=== PATIENT | female | born 1950 | race Caucasian/White ===

== ENCOUNTER 2022-03-10 12:38 | Emergency (ER) | payer MEDICARE, OTHER, SELFPAY ==
[2022-03-10] VITALS (18 sets, daily range): BP systolic 141–176; BP diastolic 81–89; PULSE 57–71; TEMP 36.5; O2SAT 92–98
--- NOTE | 2022-03-10 13:01 | ED.GENADULT ---
HPI - General Adult General Time Seen by Provider: 13:02 Date Seen: 03/10/22 Chief complaint: Chest Pain Stated complaint: Chest pain Time Seen by Provider: 03/10/22 12:43 Source: patient and RN notes reviewed Mode of arrival: ambulatory Limitations: no limitations History of Present Illness HPI narrative: Patient is a 72-year-old female coming in with left-sided chest pain that goes into her back. It is been present for about 2 days, really seem to worsen after starting prednisone. She was in to her doctor this week, had complaints of left flank pain that seem to worsen with movement and position change, was thought to be musculoskeletal insert on prednisone. She also complained of her knees hurting her, x-rays were obtained and she is being referred to orthopedics. Her knees actually feel better on the prednisone but this left flank pain has not changed. Since starting the prednisone she has had this severe left lower chest discomfort that goes through into her back. She is not noted any change in GI symptoms such is nausea or vomiting or change in appetite. Eating does not seem to make it worse. She has had no shortness of breath. Last night she felt like she maybe had a bur or cough that it might relieve the pressure. There is a sense of pressure. She notes no history of reflux in no current symptoms of regurgitation. She does relate to me that these symptoms in the left chest maybe were present intermittently over the last 4-5 months in she never really told her doctor about it. She would notice it at night when lying down. No fevers or chills. No prior trauma. She has had a hysterectomy but no other abdominal surgery. No palpitations, no prior cardiac history. She has hypertension which she feels is probably mild. Her cholesterol maybe this last time total was 219, has not been on cholesterol medicine prior. She has never smoked, very rare social alcohol use reported. Her mother had 2 open heart surgeries 1 for revascularization and 1 for a valve. Her dad at age 94 without any underlying cardiac issues. Per her chart she is actually on Medrol Dosepak, not prednisone. Related Data Home Medications Medication Instructions Recorded Confirmed Protandim 03/10/22 citalopram 40 mg tablet mg 03/10/22 glucosamine HCl .ROUTE 03/10/22 hydrochlorothiazide 25 mg tablet mg 03/10/22 losartan 25 mg tablet mg 03/10/22 methylprednisolone 4 mg tablets in mg 03/10/22 a dose pack Previous Rx's Medication Instructions Recorded omeprazole 40 mg capsule,delayed 40 mg PO DAILY #14 caps 03/10/22 release sucralfate 1 gram tablet (Carafate) 1 g PO BID #30 tabs 03/10/22 Allergies Allergy/AdvReac Type Severity Reaction Status Date / Time erythromycin base Allergy Unknown Verified 03/10/22 12:50 Review of Systems Status of ROS: Reports: 10 or more systems reviewed and unremarkable except as noted in History and below PFSH PFSH Social History Smoking Status: Never smoker Do you use any of these nicotine containing products: None Second hand tobacco smoke exposure: No How often do you have a drink containing alcohol: monthly or less How many standard drinks containing alcohol do you have on a typical day: 1 or 2 How often do you have six or more drinks on one occasion: Never AUDIT-C Alcohol total score: 1 Non-prescribed substance use: denies use Exam Const: Vital Signs, click to edit/add: Vital Signs - 24 hr 03/10/22 12:46 03/10/22 13:20 03/10/22 12:46 Temperature 97.7 F Pulse Rate 65 Pulse Rate [Right Pulse Oximeter] 71 Blood Pressure Blood Pressure [Le ft Upper Arm] 141/89 H Pulse Oximetry 97 96 95 [facility] 03/10/22 13:02 03/10/22 13:03 03/10/22 13:32 Temperature Pulse Rate 66 66 67 Pulse Rate [Right Pulse Oximeter] Blood Pressure 151/83 H 155/87 H Blood Pressure [Le ft Upper Arm] Pulse Oximetry 96 97 98 [facility] 03/10/22 13:40 03/10/22 14:00 03/10/22 14:02 Temperature Pulse Rate 57 L 63 58 L Pulse Rate [Right Pulse Oximeter] Blood Pressure 144/86 H Blood Pressure [Le ft Upper Arm] Pulse Oximetry 96 97 97 [facility] 03/10/22 14:03 03/10/22 14:30 03/10/22 14:31 Temperature Pulse Rate 61 64 60 Pulse Rate [Right Pulse Oximeter] Blood Pressure 147/82 H Blood Pressure [Le ft Upper Arm] Pulse Oximetry 97 97 97 [facility] 03/10/22 15:02 03/10/22 15:04 03/10/22 15:30 Temperature Pulse Rate 65 62 58 L Pulse Rate [Right Pulse Oximeter] Blood Pressure 176/81 H Blood Pressure [Le ft Upper Arm] Pulse Oximetry 98 98 97 Oxygen Delivery Me thod 03/10/22 15:32 03/10/22 16:00 03/10/22 16:02 Temperature Pulse Rate 57 L 58 L Pulse Rate [Right Pulse Oximeter] Blood Pressure 157/84 H 154/82 H Blood Pressure [Le ft Upper Arm] Pulse Oximetry 98 92 97 Oxygen Delivery Me thod Documenting provider has reviewed patient's vital signs: yes Common normals: no apparent distress, average body habitus, oriented x3, no limitations, healthy appearing, alert and well nourished General appearance: cooperative, comfortable and well kempt HENMT: Common normals: normocephalic, head/scalp atraumatic, hearing grossly normal bilaterally and external ears normal Head and scalp: normocephalic and atraumatic External ear: external ears normal Eye: Common normals: PERRL, EOMs intact bilaterally, conjunctivae normal and no scleral icterus Conjunctiva: conjunctiva(e) normal Pupil: PERRL Neck & C-Spine: Common normals: full ROM, no lymphadenopathy, supple, no meningeal signs, no JVD and thyroid normal Thyroid: thyroid normal Lymph: Lymphatic: no lymphadenopathy noted Chest: Common normals: inspection of chest normal and palpation of chest normal (But does complain of a little discomfort along the left lower chest wall) Resp: Common normals: normal respiratory effort, no retractions, no use of accessory muscles and clear to auscultation bilaterally Auscultation: clear to auscultation bilaterally Cardio: Common normals: no JVD, regular rate, regular rhythm, S1 normal heart sound, S2 normal heart sound, no gallops, no clicks, no murmurs and no rub Rate: regular rate Rhythm: regular rhythm Heart sounds: S1 normal and S2 normal GI: Common normals: Normal to inspection, nondistended, normoactive bowel sounds present, soft to palpation, non-tender, no hepatosplenomegaly, no masses and no bruits Palpation: soft and no hepatosplenomegaly : Common normals: no CVA tenderness Bladder/kidney exam: no CVA tenderness Back & Pelvis: Common normals: no CVA tenderness, thoracic and lumbar spine normal to inspection and no thoracic nor lumbar tenderness Extremity: Common normals: normal to inspection, full ROM, no calf tenderness and no pedal edema Neuro: Common normals: oriented x3 Sensorium/orientation: alert Meningeal signs: no meningeal signs Speech: speech normal Gait (neuro): normal gait Psych: Appearance: well [facility] Course Course Hospital Course: EKG, portable chest x-ray will be obtained to start. IV will be placed in appropriate labs with blood work and urinalysis will be ordered. She will be on cardiac monitoring and pulse oximetry. She understands she may need further imaging. This could be GI a with gastritis or ulcer disease, could be cardiopulmonary including but not limited to coronary artery disease, dissection. I do wonder if this certainly could be GI given the worsening with the Medrol Dosepak. I am going to order 40 mg IV Protonix. Obviously, if it is looking to be cardiovascular such as an ND, will need to mash filter cloth changer as well as medication options. Reevaluation(s) Reevaluation #1: Reviewed with patient her normal portable chest x-ray, normal troponin, normal inflammatory markers. Did review that the white blood count is mildly elevated but I really have no idea where her line is. Her liver and kidney functions are normal. D-dimer is normal. She states the Protonix really has not helped the pain. I did review with her that if she is having gastric issues like a gastritis or gastric ulcer, even possibly H pylori, that I would not anticipate that a proton pump inhibitor would be a quick fix for pain. Have discussed other options for them here. We could do CT of her chest abdomen pelvis just to ensure no miss intrathoracic or intra-abdominal pathology. She may ultimately need an EGD in this evaluation which would not be done emergently here. She would like to consider this for moment and I will check back with her. Time: 14:24 Reevaluation #2: Brought a copy of patient's CT report to her. There are no acute findings that are concerning, nothing to explain her current symptoms. She did talk about her low back pain and I did advise her that that really was not the focus of this ED visit. I do wonder if her left-sided chest pain in this left flank pain that she had been having prior might be gastrointestinal, gastritis or early ulcer disease. It is possible she may have some silent GERD as well. At this time, I do feel it is safe for patient to discharge to home for further outpatient management. We will have her try some prescription proton pump inhibitor, Carafate if her insurance will cover it. I do recommend that she stop the Medrol Dosepak as she has symptoms that definitely escalated after starting that. She is going to need to follow up in clinic to continue further investigations, 1 consideration would certainly be an EGD in my opinion. Time: 16:01 Vital Signs Vital signs: Initial Vital Signs Temperature 97.7 F 03/10/22 12:46 Temperature Source Temporal Artery Scan 03/10/22 12:46 Pulse Rate 65 03/10/22 12:46 Blood Pressure 141/89 H 03/10/22 12:46 Blood Pressure Mean 106 03/10/22 12:46 Blood Pressure Position Supine 03/10/22 12:46 Pulse Oximetry 97 03/10/22 12:46 Oxygen Delivery Method 03/10/22 12:46 Vital Signs Temperature 97.7 F 03/10/22 12:46 Pulse Rate 65 03/10/22 12:46 Blood Pressure 141/89 H 03/10/22 12:46 Pulse Oximetry 97 03/10/22 12:46 Oxygen Delivery Method 03/10/22 12:46 Temperature 97.7 F 03/10/22 12:46 Pulse Rate 58 L 03/10/22 16:02 Blood Pressure 154/82 H 03/10/22 16:02 Pulse Oximetry 97 03/10/22 16:02 Oxygen Delivery Method 03/10/22 12:46 Medical Decision Making Lab Data Lab results reviewed: Yes I reviewed the patient's lab results Labs: Lab Results 03/10/22 03/10/22 03/10/22 Range/Units 13:20 13:20 13:20 WBC 12.90 H (4.50-11.00) K/uL RBC 4.62 (4.00-5.20) m/uL Hgb 13.2 (12.0-16.0) gm/dL Hct 40.3 (33.0-51.0) % MCV 87 (80-100) fL MCH 29 (26-34) pg MCHC 33 (32-36) gm/dL RDW Coeff of Geovanna 13.7 (11.5-15.5) % Plt Count 454 H (140-440) K/uL Neut % (Auto) 68.8 (42.0-72.0) % Lymph % (Auto) 20.6 (20-44) % [place] % (Auto) 9.6 (0.0-11.0) % Eos % (Auto) 0.5 (0.0-7.0) % Baso % (Auto) 0.2 (0.0-3.0) % Neut # (Auto) 8.90 H (1.7-7.0) K/uL Lymph # (Auto) 2.70 (0.90-2.90) K/uL [place] # (Auto) 1.20 H (0.00-0.90) K/UL Eos # (Auto) 0.10 (0.00-0.50) K/uL Baso # (Auto) 0.00 (0.00-0.30) K/uL Abs Immat Gran (auto) 0.04 (0.00-0.30) K/uL ESR 18 (2-20) mm/hr D-Dimer Quant (PE/DVT) 0.40 (0.00-0.50) ug/ml Sodium (135-149) mmol/L Potassium (3.6-5.1) mmol/L Chloride (96-114) mmol/L Carbon Dioxide (20-32) mmol/L BUN (7-30) mg/dL Creatinine (0.5-1.5) mg/dL Estimated GFR ml/min Glucose (60-115) mg/dL Lactate (0.5-1.9) mmol/L Calcium (8.4-10.6) mg/dL Total Bilirubin (0.1-1.5) mg/dL AST (12-35) U/L ALT (4-35) U/L Alkaline Phosphatase (40-150) U/L Troponin I (0.01-0.04) ng/mL C-Reactive Protein (0.5-1.0) mg/dL NT-Pro-B Natriuret Pep (0-125) PG/mL Total Protein (6.0-8.3) g/dL Albumin (3.3-5.0) g/dL Lipase (23-300) U/L Urine Color (Yellow) Urine Appearance (Clear) Urine pH (5.0-8.5) Ur Specific [place] (1.000-1.030) Urine Protein (Negative) Urine Glucose (UA) (Negative) Urine Ketones (Negative) Urine Blood (Negative) Urine Nitrite (Negative) Urine Bilirubin (Negative) Urine Urobilinogen (0.2-1.0) Ur Leukocyte Esterase (Negative) Urine RBC (0-2) Urine WBC (0-5) Ur Squamous Epith Cells (None-Few) Urine Bacteria (None) 03/10/22 03/10/22 03/10/22 Range/Units 13:20 13:20 14:38 WBC (4.50-11.00) K/uL RBC (4.00-5.20) m/uL Hgb (12.0-16.0) gm/dL Hct (33.0-51.0) % MCV (80-100) fL MCH (26-34) pg MCHC (32-36) gm/dL RDW Coeff of Geovanna (11.5-15.5) % Plt Count (140-440) K/uL Neut % (Auto) (42.0-72.0) % Lymph % (Auto) (20-44) % [place] % (Auto) (0.0-11.0) % Eos % (Auto) (0.0-7.0) % Baso % (Auto) (0.0-3.0) % Neut # (Auto) (1.7-7.0) K/uL Lymph # (Auto) (0.90-2.90) K/uL [place] # (Auto) (0.00-0.90) K/UL Eos # (Auto) (0.00-0.50) K/uL Baso # (Auto) (0.00-0.30) K/uL Abs Immat Gran (auto) (0.00-0.30) K/uL ESR (2-20) mm/hr D-Dimer Quant (PE/DVT) (0.00-0.50) ug/ml Sodium 136 (135-149) mmol/L Potassium 3.6 (3.6-5.1) mmol/L Chloride 101 (96-114) mmol/L Carbon Dioxide 26 (20-32) mmol/L BUN 25 (7-30) mg/dL Creatinine 0.7 (0.5-1.5) mg/dL Estimated GFR 93 ml/min Glucose 90 (60-115) mg/dL Lactate 1.2 (0.5-1.9) mmol/L Calcium 9.2 (8.4-10.6) mg/dL Total Bilirubin 0.3 (0.1-1.5) mg/dL AST 19 (12-35) U/L ALT 18 (4-35) U/L Alkaline Phosphatase 112 (40-150) U/L Troponin I < 0.01 L (0.01-0.04) ng/mL C-Reactive Protein < 0.5 L (0.5-1.0) mg/dL NT-Pro-B Natriuret Pep 150 H (0-125) PG/mL Total Protein 7.7 (6.0-8.3) g/dL Albumin 4.5 (3.3-5.0) g/dL Lipase 45 (23-300) U/L Urine Color Yellow (Yellow) Urine Appearance Clear (Clear) Urine pH 6.0 (5.0-8.5) Ur Specific [place] 1.020 (1.000-1.030) Urine Protein Negative (Negative) Urine Glucose (UA) Negative (Negative) Urine Ketones Trace A (Negative) Urine Blood Negative (Negative) Urine Nitrite Negative (Negative) Urine Bilirubin Negative (Negative) Urine Urobilinogen 0.2 (0.2-1.0) Ur Leukocyte Esterase 1+ A (Negative) Urine RBC 2-5 A (0-2) Urine WBC 0-2 (0-5) Ur Squamous Epith Cells Moderate A (None-Few) Urine Bacteria None (None) Imaging Data Chest x-ray: Attestation: I have reviewed the pertinent imaging results. My impression: My preliminary review of this portable chest x-ray is no acute pathology, await Radiology over-read. Radiologist's impression: Patient: HUY JEAN Facility:?[facility] Patient ID:?[id number] Site Patient ID:?[id number]. Site :?[id number] Study:?XRay Chest PORTABLE-03/10/2022 1:38:09 PM Ordering Physician:?Kelsea Chin Final Report: INDICATION: Chest discomfort COMPARISON: None TECHNIQUE: Single view the chest FINDINGS: TUBES AND LINES: None. HEART AND MEDIASTINUM: The heart size is normal. The mediastinal contour appears normal for patient age. LUNGS AND PLEURAL SPACES: The lungs appear normal.The pleural spaces are unremarkable. OSSEOUS STRUCTURES: Age-appropriate appearance. No acute focal finding. IMPRESSION: No evidence of active pulmonary disease. Dictated by Emeka Vale MD @ 03/10/2022 1:49:36 PM (Electronic Signature) CT Chest/Ab/Pelvis: Attestation: I have reviewed the pertinent imaging results. Radiologist's impression: Patient: HUY JEAN Facility:?[facility] Patient ID:?[id number] Site Patient ID:?[id number]. Site :?[id number] Study:?CT Chest/Abd/Pelvis 97CC ISOVUE 370-03/10/2022 3:17:40 PM Ordering Physician:Catie Chin Final Report: INDICATION: Chest pain, low back pain. TECHNIQUE: CT chest, abdomen, and pelvis acquired with 97 mL of Isovue 370 IV contrast. Coronal and sagittal reformats were generated. COMPARISON: CT chest from 06/26/2016. FINDINGS: CHEST: Thyroid: Unremarkable. Thoracic lymph nodes: No enlarged supraclavicular, mediastinal, hilar, or axillary lymph nodes. Mediastinum and esophagus: Unremarkable. Heart and vasculature: The heart is enlarged. Lungs: Linear bibasilar opacities are suggestive of scarring. No focal consolidations. Pleura: Unremarkable. Chest wall: Unremarkable. ABDOMEN AND PELVIS: Liver: Well-circumscribed hepatic hypodensity near the dome is likely a cyst. Gallbladder and bile ducts: Unremarkable. No stones or inflammation. No biliary dilation. Spleen: Unremarkable. Pancreas: Unremarkable. Adrenal glands: Unremarkable. No nodules. Kidneys and Ureters: Unremarkable. No suspicious masses, stones, or hydronephrosis. Lymph Nodes and Retroperitoneum: Unremarkable. Vasculature: Unremarkable. GI tract: Unremarkable. Normal in caliber. Multiple diverticula project from the colon, without inflammatory changes to suggest diverticulitis. The appendix is normal. Peritoneum/Abdominal Wall: Unremarkable. No mass or infiltration. No free air or free fluid. Pelvic Viscera: Surgically absent. Bladder: Unremarkable. Bones: Multilevel degenerative changes. No aggressive appearing lytic or blastic lesions. IMPRESSION: 1. No significant CT abnormality or findings to explain the cause of the patient`s symptoms. 2. Chronic changes as above. Please note that all CT scans at this facility use dose modulation, iterative reconstruction, and/or weight-based dosing when appropriate to reduce radiation dose to as low as reasonably achievable. Dictated by Richard López MD @ 03/10/2022 3:48:36 PM (Electronic Signature) ECG Data Attestation: I personally reviewed and interpreted this ECG as follows: (Sinus rhythm, 67 beats per minute. Flipped T-waves in V1 and V2 without ST segment changes.) Prior ECG tracings: not available for review Critical Care Time Critical Care Time Critical Care Time: No Discharge Plan Discharge Clinical Impression: Left-sided chest pain Condition: Stable Instructions: Chest Pain (ED), Gastritis (ED), GERD (Gastroesophageal Reflux Disease) (ED) Additional Instructions: The definitive diagnosis for your current symptoms is not completely known. I do suspect that this could be gastrointestinal in nature and something along the lines of GERD/gastritis, possible early ulcer disease. I would recommend stopping the Medrol Dosepak. You can take Tylenol 1000 mg 3 times a day as needed for pain control. He certainly can try a heat on your back as you stated ice is intolerable for you. You need to follow up in clinic next week with your primary care provider as soon as you are able to. In the meantime, should you develop increasing pain, have fever, have vomiting or any new concerning symptoms 2, please seek re-evaluation. We will put you on omeprazole, take prescription daily. Can also try the Carafate that I prescribed, this can help coat the lining of the stomach. If this does diminish her symptoms, I do think it makes it more likely that this might be stomach related. Activity Level: Activity as Tolerated Prescriptions: New omeprazole 40 mg capsule,delayed release(DR/EC) 40 mg PO DAILY Qty: 14 0RF sucralfate [Carafate] 1 gram tablet 1 g PO BID Qty: 30 0RF No Action citalopram 40 mg tablet losartan 25 mg tablet Label Comments: TAKE 1 TABLET BY MOUTH EVERY DAY hydrochlorothiazide 25 mg tablet Label Comments: TAKE 1 TABLET BY MOUTH EVERY DAY methylprednisolone 4 mg tablets,dose pack Label Comments: FOLLOW PACKAGE DIRECTIONS glucosamine HCl .ROUTE Protandim Follow Up/Referrals: Shelby Leonardo PABonnieC [Primary Care Provider] - Stand Alone Forms: [id number] outdoorsth Info Instructions
--- NOTE | 2022-03-10 13:12 | CRLHL7_ITS ---
For Patients: As a result of the Cures Act, medical imaging exams and procedure reports are released immediately into your electronic medical record. You may view this report before your referring provider. If you have questions, please contact your health care provider. INDICATION: Chest discomfort COMPARISON: None TECHNIQUE: Single view the chest FINDINGS: TUBES AND LINES: None. HEART AND MEDIASTINUM: The heart size is normal. The mediastinal contour appears normal for patient age. LUNGS AND PLEURAL SPACES: The lungs appear normal.The pleural spaces are unremarkable. OSSEOUS STRUCTURES: Age-appropriate appearance. No acute focal finding. IMPRESSION: No evidence of active pulmonary disease. Dictated by Emeka Vale MD @ 03/10/2022 1:49:36 PM (Electronically Signed)
[2022-03-10 13:29] LABS: Lactate* 1.2 mmol/L (0.5-1.9)
[2022-03-10 13:31] LABS: Basophils Percent Auto 0.2 % (0.0-3.0); Eosinophils Percent Auto 0.5 % (0.0-7.0); Hematocrit 40.3 % (33.0-51.0); Hemoglobin* 13.2 gm/dL (12.0-16.0); Immature Granulocytes Abs Auto 0.04 K/uL (0.00-0.30); Lymphocytes Percent Auto 20.6 % (20-44); Mean Corpuscular HGB Conc 33 gm/dL (32-36); Mean Corpuscular Hemoglobin 29 pg (26-34); Mean Corpuscular Volume 87 fL (80-100); Monocytes Percent Auto 9.6 % (0.0-11.0); Neutrophils Percent Auto 68.8 % (42.0-72.0); Platelet Count* 454 K/uL (140-440); RDW Coefficient of Variation % 13.7 % (11.5-15.5); Red Blood Count 4.62 m/uL (4.00-5.20)
[2022-03-10] MEDS: PANTOPRAZOLE SODIUM 40 MG INJ IVP (13:38)
[2022-03-10 13:42] LABS: Slide Review Reflex No
[2022-03-10 13:44] LABS: Albumin* 4.5 g/dL (3.3-5.0); Chloride* 101 mmol/L (96-114); Sodium* 136 mmol/L (135-149)
[2022-03-10 13:45] LABS: Potassium* 3.6 mmol/L (3.6-5.1)
[2022-03-10 13:47] LABS: Bilirubin Total* 0.3 mg/dL (0.1-1.5); Creatinine* 0.7 mg/dL (0.5-1.5); Estimated Glomerular Filt Rate 93 ml/min
[2022-03-10 13:48] LABS: Alanine Aminotransferase* 18 U/L (4-35); Alkaline Phosphatase* 112 U/L (40-150); Aspartate Amino Transferase* 19 U/L (12-35); Blood Urea Nitrogen* 25 mg/dL (7-30); Calcium* 9.2 mg/dL (8.4-10.6); Carbon Dioxide* 26 mmol/L (20-32); Glucose* 90 mg/dL (60-115); Lipase* 45 U/L (23-300); Total Protein* 7.7 g/dL (6.0-8.3)
[2022-03-10 13:51] LABS: C Reactive Protein* < 0.5 mg/dL (0.5-1.0)
--- NOTE | 2022-03-10 13:51 | ED.NURSE ---
Pt complaint of some tenderness with palpation of IV site in R AC. IV patent and flushes well. IV checked as well by KSENIA Grady. Appears patent and flushes without discomfort.
[2022-03-10 13:57] LABS: NT Pro B Type NatriureticPept* 150 PG/mL (0-125)
[2022-03-10 14:11] LABS: Troponin I* < 0.01 ng/mL (0.01-0.04)
--- OUTSIDE RECORDS SUMMARY | 2022-03-10 14:21 | XMS_ITS ---
:1950 Author Care Team Providers Name Role Phone Cedrick Lombardo Primary Care Provider Unavailable Allergies Code Code System Name Reaction Severity Status Onset 4053 RxNorm Erythromycin Base Chest Pain ? Active ? Medications Name Status Start Date Stop Date ? ? citalopram 40 mg tablet Active ? Not avai lable TAKE 1 TABLET BY MOUTH EVERY DAY Fluzone High-Dose Quad 202021 (PF) 240 mcg/0.7 mL IM syringe Ac tive ? Not available PHARMACY ADMINISTERED hydrochlorothiazide 25 mg tablet Active ? Not available TAKE 1 TABLET BY MOUTH EVERY DAY hydrocodone 5 mg-acetaminophen 325 mg tablet Active ? Not available TAKE 1 TABLET BY MOUTH TWICE DAILY N EEDED FOR SEVERE PAIN.MAX ACETAMINOPHEN DOSE 4000MG IN 24 HRS losartan 25 mg tablet Active ? Not availa ble TAKE 1 TABLET BY MOUTH EVERY DAY Shingrix (PF) 50 mcg/0.5 mL intramuscular suspension, kit Active ? Not available TO BE ADMINISTERED BY PHARMACIST FOR IMMUNIZATION triamcinolone acetonide 0.1 % topical cream Active ? Not available APPLY A THIN LAYER TO THE AFFECTED AREA ON LEFT ANKLE DAILY TO TWICE DAILY UP TO 2 WEEKS AT A TIME. TAKE 2 WEEK OFF. REPEAT NEEDED FOR [place] Problems No Known Problems Procedures None recorded. Results Lab Results Date Name Specimen Result Interpretation Description Value Range Status Address ? 03/09/2021 SARS CoV 2 RNA, Nose (nasal ? Result negative ? ? [facility] QL, GERALD+probe, passage) [facility] Nose [place]: [address] , [place] 06/01/2020 SARS CoV 2 RNA Nose (nasal ? Result negative ? ? [facility] (COVID-19), QL, passage) Urgent Care template checker-PCR, [facility] t: Respiratory [address], [place] Past Encounters 03/09/2021 Exposure to SARS-CoV-2 Rose Lombardo PA-C: [address], [place] [address], Ph. Social History None recorded. Vaccine List Vaccine Type COVID-19, mRNA, LNP-S, PF, 100 mcg/0.5 m L dose (Moderna) 08/08/2020 09/05/2020 DTaP, unspecified formulation 03/05/2005 influenza, high dose seasonal 04/16/2019 influenza, high-dose, quadrivalent 04/01/2020 influenza, injectable, quadrivalent, pre servative free 03/24/2015 04/27/2016 influenza, trivalent, adjuvanted 05/22/2017 05/24/2018 influenza, unspecified formulation 07/02/2008 04/08/2009 04/05/2011 pneumococcal conjugate PCV 13 05/24/2018 pneumococcal polysaccharide PPV23 05/05/2004 05/28/2019 Td (adult), adsorbed 05/05/2004 Tdap 12/16/2012 zoster recombinant 04/08/2019 07/29/2019 Plan of Care Patient Instructions Discussed rapid covid results with alejo ent. Patient appears well, no immediate concerns. Patient understands and agrees with treatment plan and instructions. Symptom management discussed to continue OTC cough/cold medications as needed. Medication side effects discussed. Discu ssed risks? benefits? alternatives? side effects of treatment. If symptoms progre ss or worsen, patient should proceed to the emergency room immediately. All question s answered. Reminders Provider Appointments None recorded. ? ? Lab None recorded. ? ? Referral None recorded. ? ? Procedures None recorded. ? ? Surgeries None recorded. ? ? Imaging None recorded. ? ? Vitals Blood Pressure 143/90 mm[Hg]
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
--- NOTE | 2022-03-10 14:32 | CRLHL7_ITS ---
For Patients: As a result of the Century Cures Act, medical imaging exams and procedure reports are released immediately into your electronic medical record. You may view this report before your referring provider. If you have questions, please contact your health care provider. INDICATION: Chest pain, low back pain. TECHNIQUE: CT chest, abdomen, and pelvis acquired with 97 mL of Isovue 370 IV contrast. Coronal and sagittal reformats were generated. COMPARISON: CT chest from 06/26/2016. FINDINGS: CHEST: Thyroid: Unremarkable. Thoracic lymph nodes: No enlarged supraclavicular, mediastinal, hilar, or axillary lymph nodes. Mediastinum and esophagus: Unremarkable. Heart and vasculature: The heart is enlarged. Lungs: Linear bibasilar opacities are suggestive of scarring. No focal consolidations. Pleura: Unremarkable. Chest wall: Unremarkable. ABDOMEN AND PELVIS: Liver: Well-circumscribed hepatic hypodensity near the dome is likely a cyst. Gallbladder and bile ducts: Unremarkable. No stones or inflammation. No biliary dilation. Spleen: Unremarkable. Pancreas: Unremarkable. Adrenal glands: Unremarkable. No nodules. Kidneys and Ureters: Unremarkable. No suspicious masses, stones, or hydronephrosis. Lymph Nodes and Retroperitoneum: Unremarkable. Vasculature: Unremarkable. GI tract: Unremarkable. Normal in caliber. Multiple diverticula project from the colon, without inflammatory changes to suggest diverticulitis. The appendix is normal. Peritoneum/Abdominal Wall: Unremarkable. No mass or infiltration. No free air or free fluid. Pelvic Viscera: Surgically absent. Bladder: Unremarkable. Bones: Multilevel degenerative changes. No aggressive appearing lytic or blastic lesions. IMPRESSION: 1. No significant CT abnormality or findings to explain the cause of the patient`s symptoms. 2. Chronic changes as above. Please note that all CT scans at this facility use dose modulation, iterative reconstruction, and/or weight-based dosing when appropriate to reduce radiation dose to as low as reasonably achievable. Dictated by Richard López MD @ 03/10/2022 3:48:36 PM (Electronically Signed)
[2022-03-10] MEDS: ACETAMINOPHEN 500 MG TABLET 1000 MG PO (14:45)
[2022-03-10 14:46] LABS: Appearance Urine Clear (Clear); Bilirubin Urine Negative (Negative); Blood Urine Negative (Negative); Color Urine Yellow (Yellow); Glucose Urine Negative (Negative); Ketones Urine Trace (Negative); Leukocyte Esterase Urine 1+ (Negative); Nitrite Urine Negative (Negative); Protein Urine Negative (Negative); Urobilinogen Urine 0.2 (0.2-1.0)
[2022-03-10 15:00] LABS: Erythrocyte SedimentationRate* 18 mm/hr (2-20)
--- NOTE | 2022-03-10 15:15 | ED.NURSE ---
Pt asking if she can take her daily meds (escitalopram, losartan, and HCTZ). MD notified and MD approved pt to take her normal home meds.
[2022-03-10 15:24] LABS: Squamous Epithelial Cell Urine Moderate (None-Few); WBC Urine 0-2 (0-5)
== END 2022-03-10 16:27 | disposition home or self-care (01) ==
PROVIDERS: Emergency Provider Family Medicine; PCP Physician Assistant Medical
DX: R07.89 Other chest pain (principal); K29.70 Gastritis, unspecified, without bleeding
CPT/HCPCS: 36415; 71045; 71260; 74177; 80053; 81001; 83605; 83690; 83880; 84484; 85025; 85379; 85651; 86140; 93005; 94761; 96374; 99284; 99285; A9270; C9113; Q9967

== ENCOUNTER 2024-04-29 10:38 | Outpatient (RCR) | payer MEDICARE, OTHER, SELFPAY ==
--- NOTE | 2024-04-29 17:10 | PT.OPEX ---
PT [facility] Outpatient Eval PT [facility] Outpatient Eval Start: 04/29/24 13:23 Freq: Status: Active Protocol: Document 04/29/24 15:49 FORTINO (Rec: 04/29/24 17:08 FORTINO [id number]) E-signed By Carly Alves DPT Physical Therapy Outpatient Evaluation Insurance Information Recert Due Date 05/29/24 Insurance Name Medicare B,[employer] Medical Diagnosis R knee OA R TKA 05/05/24 Treating Diagnosis R TKA 05/05/24, R knee pain, impaired R knee ROM, limited tolerance for extended standing/walking/stairs, limping/antalgic gait Subjective Subjective Patient reports chronic bilateral knee pain, leading up to R TKA scheduled for 05/18. States she will likely have L knee replaced early next year. Patient reports difficulty with transitional movements, sit/stand, due to increased bilateral knee pain. Standing/walking/stairs are limited by knee pain, weakness . Patient is borrowing a FWW to use after surgery. Reports spouse is able to assist at home as needed after surgery. She lives in a split entry home. No stairs to enter. 8 stairs with one railing/ banister to get up to the main level. Once up to main level , patient can stay there. She has OP PT scheduled in [place]. Date of Last Physician Visit 03/19/24 Date of Surgery (If applicable) 05/05/24 Current Work Status Retired Assessment Assessment/Impression Patient is a 74 year old female with chronic R knee pain leading to R TKA scheduled for 05/05/24. Patient with R knee pain, impaired R knee ROM, limited tolerance for extended standing/walking/stairs, limping/antalgic gait. Pain up to 8-9/10 with activity. Patient lives with her spouse. He is able to assist at home as needed after surgery. She is borrowing a FWW to use after surgery. States she has a raised toilet seat to put on the toilet, walk in shower, shower chair, hand rails. Patient lives in a split entry home, no stairs to enter, 8 stairs with one railing and banister up to main level. Patient is not currently using an AD. She is getting out regularly, driving. Her OP PT is scheduled for 05/07 in [place]. Patient seen in PT today for pre-op session to provide education/information on upcoming TKA surgery, safety information/HO, equipment instruction including use of FWW, and instruction in TKA exercises. Handouts issued for exercises , patient to perform them leading up to surgery. Reviewed PT/OT plan during hospital stay and patient is scheduled for OP PT post op. Patient would benefit from skilled PT for pain/sx management, improved knee ROM, improved knee/LE mobility/ strength, improved gait, balance/proprioception training, and establishment of HEP. Plan of Care Rehabilitation Potential Good Physical Therapy Goals 1. Patient will be educated in TKA pre/post-op safety, mobility, and exercises with HOs provided within one visit with patient returning to PT for post op treatment after TKA surgery . PT goals will be updated to TKA rehab goals when patient returns post op. Coordination/Communication With Referral Source Treatment Plan/Direct Interventions Therapeutic Exercises Frequency/Duration one pre-op session Patient Will Be Discharged From Therapy Completion of LTG(s),Skills Plateau,Independent w/HEP, Independently Progressing Evaluation Billing Untimed Code Treatment Minutes 44 Complexity Low Certification Information Initial Certification Date 04/29/24 Ending Certification Date 05/29/24 Provider Signature Required Yes Provider Signature Shows Agreement With POC & Medical Necessity Physician NPI Number Write NPI# Here Physician Comment/Change : Physician Signature & Date Requested Please Sign/Date Here
== END 2024-08-27 23:59 | disposition home or self-care (01) ==
PROVIDERS: PCP Physician Assistant Medical; Visit Provider Orthopaedic Surgery Sports Medicine
DX: M17.11 Unilateral primary osteoarthritis, right knee (principal); Z96.651 Presence of right artificial knee joint; M25.561 Pain in right knee; Z74.09 Other reduced mobility; R26.89 Other abnormalities of gait and mobility; Z51.89 Encounter for other specified aftercare
CPT/HCPCS: 97161; J3010

== ENCOUNTER 2024-05-05 09:59 | Day surgery (SDC) | payer MEDICARE, OTHER, SELFPAY ==
[2024-05-05] VITALS (27 sets, daily range): BP systolic 100–180; BP diastolic 56–118; PULSE 40–58; RESP 14–20; TEMP 35.9–37; O2SAT 91–100; BMI 34.4
[2024-05-05] MEDS: MIDAZOLAM HCL 1 MG/ML inj IVP (08:46)
[2024-05-05] MEDS: OXYCODONE (CR) 10 MG TAB.ER.12H PO (08:46)
[2024-05-05] MEDS: fentaNYL 100 MCG/2 ML inj IVP (08:46)
[2024-05-05] MEDS: ACETAMINOPHEN 500 MG TABLET 1000 MG PO ×3 (08:46→21:29)
[2024-05-05] MEDS: LACTATED RINGERS 1000 ML 1,000 ML 100 ML IV (08:50)
--- OUTSIDE RECORDS SUMMARY | 2024-05-05 10:05 | XMS_ITS | Clinical Summary ---
Author Organization [employer] [facility] Address [place], [place] [address] Care Team Providers Care Clinical Laboratory Aide Name Role Phone Shelby Leonardo Primary Care Provider Allergies Active Allergy Reactions Criticality Noted Date Comments Doxycycline Headache 09/21/2023 Erythromycin Palpitations,Tachyc ardia 09/01/2011 Unlisted Allergen (Include Detail In Comments) Chest Pain 12/30/2015 PN: Arythromycin - chest tightness Medications Medication Sig Dispensed Refills Start Date End Date Status Multivitamin Cmb No.21-Iron-FA (CENTRUM ULTRA WOMEN'S) 18-400 mg-mcg Tab Take by mouth. 0 09/01/2011 Active calcium carbonate (Calcicarb) 650 mg calcium (1,625 mg) tablet Take 1 Tablet (1,625 mg) by mouth once daily. 0 10/18/2022 Active cyclobenzaprine (FLEXERIL) 10 mg tabletIndications:C hronic midline low back pain without sciatica,Muscle spasm Take 1 Tablet (10 mg) by mouth 2 times daily if needed for Muscle Spasm. 60 Tablet 3 03/12/2023 Active LORazepam (ATIVAN) 1 mg tabletIndications:C laustrophobia Take 1 Tablet (1 mg) by mouth one time for 1 dose. Take 1/2-1 hour before the MRI 1 Tablet 08/01/2023 Active fluticasone (50 mcg per actuation) nasal solution (FLONASE)Indication s:Post-nasal drip Inhale 1 [place] to both nostrils two times daily. 16 g 2 10/25/2023 Active citalopram (CELEXA) 40 mg tabletIndications:D ysthymia Take 1 Tablet (40 mg) by mouth once daily. 90 Tablet 3 03/10/2024 Active hydroCHLOROthiazide 25 mg tabletIndications:H ypertension, unspecified type Take 1 Tablet (25 mg) by mouth once daily. 90 Tablet 3 03/10/2024 Active losartan (COZAAR) 25 mg tabletIndications:H ypertension, unspecified type Take 1 Tablet (25 mg) by mouth once daily. 90 Tablet 3 03/10/2024 Active rosuvastatin (CRESTOR) 10 mg tabletIndications:H yperlipidemia, unspecified hyperlipidemia type Take 1 Tablet (10 mg) by mouth at bedtime. 90 Tablet 3 03/10/2024 Active antiox #8/om3/dha/epa/lut/ zeax (PRESERVISION AREDS 2, OMEGA-3, ORAL) Take by mouth. Active LUTEIN ORAL Take by mouth. Active glucosam/chond/glyc osaminog/C (GLUCOSAM-CONDROITI N-GA GLYCN-C ORAL) Take by mouth. Ac tive diazePAM (Valium) 2 mg tabletIndications:S udden hearing loss of both ears Take 1 tab 30 minutes prior to procedure. Can take additional dose if needed 2 Tablet 04/03/2024 Active omeprazole (PRILOSEC) 40 mg Delayed-Release capsuleIndications: Mixed conductive and sensorineural hearing loss of right ear with restricted hearing of left ear Take 1 Capsule (40 mg) by mouth once daily before a meal. 14 Capsule 04/03/2024 Active celecoxib (CELEBREX) 200 mg capsuleIndications: Arthritis of right knee Take 1 Capsule (200 mg) by mouth 2 times daily if needed for Pain. 36 Capsule 1 03/10/2024 Discontinue d(*Patient states no longer taking) predniSONE (DELTASONE) 20 mg tabletIndications:S udden hearing loss of both ears Take 2 Tablets (40 mg) by mouth once daily with a meal for 7 days. 14 Tablet 04/03/2024 Active Problems Problem Noted Date Diagnosed Date Asymmetrical sensorineural hearing loss 11/14/19 24 Depression, recurrent 03/07/2023 Arthritis of right knee 04/03/2022 Arthritis of left knee 04/03/2022 Routine adult health maintenance 10/17/2018 Overview (10/17/2018): Colonoscopy 09/2018 normal, repeat in 10 years Inclusion cyst of vulva 02/10/2014 Back pain 02/10/2014 Skin lesion of face 02/03/2013 HTN (hypertension) 03/11/2012 Dysthymia 09/01/2011 Resolved Problems Problem Noted Date Diagnosed Date Resolved Date History of sudden hearing loss 11/14/2023 11/14/2023 Overview (11/14/2023): Right ear Encounters Date Type Department Care Team Description 04/21/2024 3:40 PM CDT Ancillary Procedure [facility] [address] [place] [address] 04/21/2024 Travel 04/21/2024 Telephone [facility] [address] [facility] [address] [facility] [address] [place] [address] Harman Smart MD 04/16/2024 3:07 PM CDT - 04/16/2024 11:59 PM CDT Hospital Encounter [facility] [address] [place] [address] Harman Smart MD Sudden hearing loss of both ears 04/16/2024 11:30 AM CDT Office Visit [facility] [address] [place] [address] Shelby Leonardo PA Preoperative Exam (Rt knee) 04/16/2024 Travel 04/03/2024 10:15 AM CDT Office Visit [facility] [address] [place] [address] Harman Smart MD Follow Up (Asymmetrical sensorineural hearing loss) 04/02/2024 1:00 PM CDT Office Visit [facility] [address] [place] [address] Syeda Valencia AuD Hearing Problem (Hearing test/) 04/02/2024 Travel 04/01/2024 Telephone [facility] [address] [place] [address] Harman Smart MD Referral (Audiological Evaluation) 03/31/2024 Telephone [facility] [address] [place] [address] Harman Smart MD Hearing Problem (Reoccuring hearing issue) 03/10/2024 2:40 PM CDT Office Visit [facility] [address] [facility] [place] [address] Shelby Leonardo PA Medicare ANNUAL (subsequent) Visit (74 years old) 03/10/2024 Travel from Last 3 Months Immunizations Name Administration Dates Next Due COVID-19 VACCINE SPIKEVAX (M ODERNA 50MCG/0.5ML) 12YO+ PFS 03/10/2024,08/01/2023 COVID-19 vaccine (Moderna 10 0mcg/0.5mL) PF, MDV 04/22/2021,09/05/2020,08/08/2020 COVID-19 vaccine (Pfizer-Bio NTech 30mcg/0.3mL) 12YO+ NAS-SUCROSE PF, MDV 10/04/2021 Dtap Unspecified Formulation 03/05/2005 Influenza Virus, Unspecified 04/05/2011,04/08/20 09,07/02/2008 Influenza, High-dose Inactivated 04/16/2019 Influenza, High-dose Quadriv alent Inactivated 04/01/2020 Influenza, IIV4 04/27/2016,03/24/2015 Influenza, IIV4 (=>6mos) MDV 04/01/2020 Influenza, Inactivated AIIV4 (Age 65+ Years) Preserv Free 08/01/2023,03/06/2022,04/11/2021 Influenza, Inactivated IIV3 (Age 65+ Years) Preserv Free 03/10/2024,05/24/2018,05/22/2017 Pneumococcal Poly,23-Valent (Pneumovax) 05/28/20 19,05/05/2004 Pneumococcal conj 13-Valent (Prevnar 13) 018 Td (Age >=7 Years) 05/05/2004 Tdap 12/16/2012 Tdap, Unspecified 03/05/2005 Zoster (Shingrix-RZV, recombinant) 07/29/2019, Family History Medical History Relation Name Comments Cancer-breast Daughter borderline Other Daughter atypical breast cells. no cancer. Other Maternal Aunt melanoma Other Mother melanoma age 59 Cancer-colon No Family History Cancer-ovarian No Family History Relation Name Status Comments Daughter Maternal Aunt Mother Social History Tobacco Use Types Packs/Day Years Used Date Smoking Tobacco: Never Smokeless Tobacco: Never Tobacco Cessation:Counseling Given: Yes Alcohol Use Standard Drinks/Week Comments Yes 0 (1 standard drink = 0.6 oz pur e alcohol) rare PHQ-2 Answer Date Recorded PHQ-2 TOTAL SCORE 0 03/10/2024 Social Connections Answer Date Recorded Do you often feel lonely or isolated from those around you? 0 09/20/2023 Financial Resource Strain Answer Date R ecorded Difficulty of Paying Living Expenses 3 09/20/2023 Difficulty of Paying Living Expenses Not on file 09/20/2023 Food Insecurity Answer Date Recorded Do you worry your food will run out before you are able to buy more? 1 09/20/2023 Transportation Needs Answer Date Record ed Does lack of transportation keep you from medica l appointments? 1 09/20/2023 Does lack of transportation keep you from work, meetings or getting things that you need? 1 09/20/2023 Housing Stability Answer Date Recorded What is your housing situation today? 1 09/20/2023 Sex and Gender Information Value Date Recorded Sex Assigned at Not on file Gender Identity Not on file Sexual Orientation Not on file Obstetrics History Para Term AB IAB SAB Ectopic Multiple Livin g Live Births 3 2 2 Date Outcome GA Total Labor Labor/2nd/3rd Weight Sex Type Anes PTL Brie A1 A5 Name Clin Para Para Last Filed Vital Signs Vital Sign Reading Time Taken Comments Blood Pressure 131/84 04/16/2024 11:38 AM CDT Pulse 60 04/16/2024 11:38 AM CDT Temperature 36.6 ??C (97.8 ??F) 10/08/2023 10:26 AM C DT Respiratory Rate 14 10/11/2023 1:01 PM CDT Oxygen Saturation 97% 10/08/2023 10:26 AM CDT Inhaled Oxygen Concentration - - Weight 93.9 kg (207 lb) 04/16/2024 11:38 AM CDT Height 165.9 cm (5' 5.3) 03/10/2024 3:03 PM CDT Body Mass Index 34.13 03/10/2024 3:03 PM CDT Plan of Treatment Health Maintenance Due Date Last Done Comments Tetanus booster 12/16/2022 12/16/2012, 02/23, 05/05/2004 BMI (ht and wt on same day) for age 18+ 03/10/2025 03/10/2024, 09/05/2023, 04/07/2022, Additional history exists Depression screening for age 12+ 03/10/2025 03/10/2024, 03/09/2023, 03/07/2023, Additional history exists Medicare Wellness for age 65+ 03/11/2025, 03/07/2023, 03/06/2022, Additional history exists Mammogram for age 45-75 04/21/2025 04/21/20, 04/17/2023, 04/13/2022, Additional history exists Lipids for age 45-75 03/07/2028 03/07/2023, 03/06/2022, 06/30/2020, Additional history exists Colonoscopy through age 75 10/17/202810/17, 10/17/2018, 10/17/2018 Tdap Completed 12/16/2012, 03/05/2005 Hepatitis C screening for ag e 18-79 Completed 02/10/2014 DEXA/DXA scan for age 65+ Completed 09/10/2018 Pneumococcal series for age 65+ Completed 05/28/2019, 05/24/2018, 05/05/2004 Zoster (shingles) series for age 50+ Completed 07/29/2019, 04/08/2019 COVID-19 vaccine series Completed 03/10/20, 08/01/2023, 11/28/2022, Additional history exists Influenza for age 65+ Completed 03/10/2024 , 08/01/2023, 03/06/2022, Additional history exists Procedures Procedure Name Priority Date/Time Associated Diagnosis Comments XR MAMMO TONG BILAT SCREEN Routine 04/21/2024 3:36 PM CDT Visit for screening mammogram EKG 12 LEAD Routine 04/17/2024 11:21 AM CDT Hypertension, unspecified type NJ READING EKG - NO CHARGE, COMP ONLY Routine 04/17/2024 11:20 AM CDT Hypertension, unspecified type MR HEAD BRAIN IACS WWO Routine 3:56 PM CDT Sudden hearing loss of both ears HEMOGLOBIN Routine 04/16/2024 12:19 PM CDT Hypertension, unspecified type BASIC METABOLIC PANEL Routine 04/16/2024 12:19 PM CDT Hypertension, unspecified type ANTINUCLEAR ANTIBODIES TITER AND PATTERN (QUEST REFLEX ONLY) Routine 04/03/2024 10:53 AM CDT ANTINUCLEAR ANTIBODY BY IFA Routine 04/03/2024 10:53 AM CDT Sudden hearing loss of both ears C-REACTIVE PROTEIN Routine 04/03/2024 10 :53 AM CDT Sudden hearing loss of both ears SEDIMENTATION RATE Routine 04/03/2024 10 :53 AM CDT Sudden hearing loss of both ears LIPID PANEL W REFLEX MEASURED LDL Routine 03/07/2023 3:14 PM CDT Screening cholesterol level COLONOSCOPY 10/17/2018 10:12 AM CDT XR DXA BONE DENSITY 2 SITES AXIAL Routine 09/10/2018 11:18 AM CDT Menopause ANTI HCV Routine 02/10/2014 12:04 PM CDT Need for hepatitis C screening test from Last 3 Months or Most Recently Relevant to Health Maintenance Results * XR MAMMO TONG BILAT SCREEN (04/21/2024 3:36 PM CDT) Anatomical Region Laterality Modality BREASTS, Breast Left, Breast Right Bilateral Mammography Impressions 04/23/2024 2:18 PM CDT ??There is no radiographic evidence for malignancy. ??Recommend annual mammograms. MAMMOGRAM ASSESSMENT: ??ACR 1 Negative PATIENTS: You will also receive a letter with your examination results in an easy to read format. ??If you have questions about your results, please contact your referring provider. Narrative 04/23/2024 2:18 PM CDT For Patients: As a result of the Cures Act, medical imaging exams and procedure reports are released immediately into your electronic medical record. You may view this report before your referring provider. If you have questions, please contact your health care provider. XR MAMMO TONG BILAT SCREEN [[id number]] CLINICAL HISTORY: ??This is an asymptomatic 74 y.o. patient. INDICATION FOR EXAM: Mammogram Screening. TECHNIQUE: CC & MLO views were obtained. ??This study was evaluated with the assistance of Computer-Aided Detection. Breast Tomosynthesis was used in interpretation. COMPARISON FILM: Yes 04/17/23 [facility] 04/13/22 [facility] FINDINGS: ??There are scattered areas of fibroglandular density. There are no dominant masses, suspicious micro calcifications or areas of architectural distortion. Shelby PATRICIO MAMMO * EKG 12 LEAD (04/17/2024 11:21 AM CDT) Shelby PATRICIO EKG ORD * NJ READING EKG - NO CHARGE, COMP ONLY (04/17/2024 11:20 AM CDT) Shelby PATRICIO PB - PROVIDER R EADINGS * MR HEAD BRAIN IACS WWO (04/16/2024 3:56 PM CDT) Anatomical Region Laterality Modality HEAD Magnetic Resonan ce 04/16/2024 4:44 PM CDT Impressions 04/16/2024 4:44 PM CDT 1. No radiographic evidence of acute intracranial abnormalities. 2. Mild supratentorial white matter change that is nonspecific but in a patient of this age statistically most likely related to chronic small vessel ischemic change. Dictated by Rey Kauffman MD @ 04/16/2024 4:44:20 PM (Electronically Signed) Narrative 04/16/2024 4:44 PM CDT For Patients: ??As a result of the Cures Act, medical imaging exams and procedure reports are released immediately into your electronic medical record. ??You may view this report before your referring provider. ??If you have questions, please contact your health care provider. INDICATION: Sudden bilateral hearing loss TECHNIQUE: Non-contrast sagittal T1, axial FLAIR, FSE T2, DWI, posterior fossa CISS images provided. ??Supplemental post contrast T1 weighted axial and coronal high resolution images through the posterior fossa with fat saturation and post contrast whole head axial T1 weighted images submitted. ??No comparisons. 20 cc of dotarem gadolinium was administered intravenously. FINDINGS: The ventricles, sulci and gyri are of normal size, shape and contour for age. ??Midline structures are centrally located. ??No convincing evidence of suspicious intra- or extra-axial fluid collections. ??No regions of restricted diffusion. ??Expected flow-voids within the cavernous carotids and basilar artery. ??No suspicious masses within the internal auditory canals. ??No suspicious regions of abnormal parenchymal enhancement. Mild scattered foci of increased T2 signal within the supratentorial white matter that are non-specific. Procedure Note Mo Kauffman, - 04/16/2024 For Patients: As a result of the Cures Act, medical imagingexams and procedure reports are released immediately into your electronicmedical record. You may view this report before your referring provider.If you have questions, please contact your health care provider. INDICATION: Sudden bilateral hearing loss TECHNIQUE: Non-contrast sagittal T1, axial FLAIR, FSE T2, DWI, posterior fossa CISSimages provided. Supplemental post contrast T1 weighted axial and coronalhigh resolution images through the posterior fossa with fat saturation andpost contrast whole head axial T1 weighted images submitted. Nocomparisons. 20 cc of dotarem gadolinium was administered intravenously. FINDINGS: The ventricles, sulci and gyri are of normal size, shape and contour forage. Midline structures are centrally located. No convincing evidence ofsuspicious intra- or extra-axial fluid collections. No regions ofrestricted diffusion. Expected flow- voids within the cavernous carotidsand basilar artery. No suspicious masses within the internal auditorycanals. No suspicious regions of abnormal parenchymal enhancement. Mildscattered foci of increased T2 signal within the supratentorial whitematter that are non-specific. IMPRESSION: 1. No radiographic evidence of acute intracranial abnormalities. 2. Mild supratentorial white matter change that is nonspecific but in apatient of this age statistically most likely related to chronic smallvessel ischemic change. Dictated by Rey Kauffman MD @ 04/16/2024 4:44:20 PM (Electronically Signed) Harman Smart MD MR * HEMOGLOBIN (04/16/2024 12:19 PM CDT) Pathologist [facility] HEMOGLOBIN 12.3 11.7 - 15.5 g/dL [facility] Blood BLOOD SPECIMEN / Unknown 04/16/2024 12:19 PM CDT 04/16/2024 12:20 PM CDT Shelby PATRICIO HEMATOLOGY [facility] [address] [place] [address], [facility] [address] [place] [address] * BASIC METABOLIC PANEL (04/16/2024 12:19 PM CDT) GLUCOSE 87 65 - 99 mg/dL [facility] Comment: ? Fasting reference interval UREA NITROGEN (BUN) 15 7 - 25 mg/dL [facility] CREATININE 0.82 0.60 - 1.00 mg/dL [facility] EGFR 76 > OR = 60 mL/min/1. 73m2 [facility] BUN/CREATININE RATIO SEE NOTE: (calc) [facility] Comment: ?? Not Reported: BUN and Creatinine are within ?? reference range. ? SODIUM 142 135 - 146 mmol/L [facility] POTASSIUM 4.4 3.5 - 5.3 mmol/L [facility] CHLORIDE 104 98 - 110 mmol/L [facility] CARBON DIOXIDE 30 20 - 32 mmol/L [facility] ELECTROLYTE BALANCE 8 7 - 17 mmol/L (calc) [facility] CALCIUM 9.3 8.6 - 10.4 mg/dL [facility] Blood BLOOD SPECIMEN / Unknown 04/16/2024 12:19 PM CDT 04/16/2024 12:20 PM CDT Shelby PATRICIO CHEMISTRY [facility] [address] [place] [address], [facility] [address] [place] [address] * (ABNORMAL) ANTINUCLEAR ANTIBODIES TITER AND PATTERN ([facility] REFLEX ONLY) (04/03/2024 10:53 AM CDT) CHRISTEN TITER 1:80(H) titer [facility] Comment: A low level CHRISTEN titer may be present in pre-clinical autoimmune diseases and normal individuals. ?Reference Range ?<1:40 ?Negative ?1:40-1:80 ?Low Antibody Level ?>1:80 ?Elevated Antibody Level CHRISTEN PATTERN Nuclear, Homogeneou s(A) [facility] Comment: Homogeneous pattern is associated with systemic lupus erythematosus (SLE), drug-induced lupus and juvenile idiopathic arthritis. AC-1: Homogeneous International Consensus on CHRISTEN Patterns (https://doi.org/10.1515/ctip-4079-0634) 04/03/2024 10:5 3 AM CDT 04/03/2024 10:53 AM CDT Narrative [facility] - 04/05/2024 6:50 AM CDT FASTING:NO FASTING: NO Harman Smart MD LABORATORY Performing Organization Address [facility]/ZIP Co de Phone Number clipkit [facility] [address] [place] [address], [facility] [address] [place] [address] * SEDIMENTATION RATE (04/03/2024 10:53 AM CDT) Pathologist [facility] SED RATE BY MODIFIED WESTERGREN 14 < OR = 30 mm/h [facility] Blood BLOOD SPECIMEN / Unknown 04/03/2024 10:53 AM CDT 04/03/2024 10:53 AM CDT Narrative [facility] - 04/04/2024 4:13 AM CDT FASTING:NO FASTING: NO Harman Smart MD HEMATOLOGY Performing Organization Address [facility] de Phone Number clipkit [facility] [address] [place] [address], [facility] [address] [place] [address] * (ABNORMAL) ANTINUCLEAR ANTIBODY BY IFA (04/03/2024 10:53 AM CDT) CHRISTEN SCREEN, IFA POSITIVE( A) NEGATIVE [facility] Comment: CHRISTEN IFA is a first line screen for detecting the presence of up to approximately 150 autoantibodies in various autoimmune diseases. A positive CHRISTEN IFA result is suggestive of autoimmune disease and reflexes to titer and pattern. Further laboratory testing may be considered if clinically indicated. For additional information, please refer to http://education.Taodyne/faq/LAW092 (This link is being provided for informational/ educational purposes only.) ?? Blood BLOOD SPECIMEN / Unknown 04/03/2024 10:53 AM CDT 04/03/2024 10:53 AM CDT Narrative [facility] - 04/05/2024 6:50 AM CDT FASTING:NO FASTING: NO Harman Smart MD CHEMISTRY Performing Organization Address City/[facility]/ZIP Co de Phone Number clipkit [facility] [address] [place] [address], [facility] [address] [place] [address] * C-REACTIVE PROTEIN (04/03/2024 10:53 AM CDT) C-REACTIVE PROTEIN 5.7 <8.0 mg/L [facility] z[facility] Daniel Blood BLOOD SPECIMEN / Unknown 04/03/2024 10:53 AM CDT 04/03/2024 10:53 AM CDT Narrative [facility] - 04/04/2024 11:22 AM CDT FASTING:NO FASTING: NO Harman Smart MD CHEMISTRY Performing Organization Address [facility]/ZIP Co de Phone Number clipkit [facility] [address] [place] [address], [facility] [address] [place] [address] * (ABNORMAL) LIPID PANEL W REFLEX MEASURED LDL (03/07/2023 3:14 PM CDT) CHOLESTEROL,TOTAL 243(H) 100 - 199 mg/dL 03/08/2023 5:48 AM CDT [facility] Comment: Cholesterol, Total Reference Ranges Desirable <200 mg/dL Borderline 200-239 mg/dL High >=240 mg/dL TRIGLYCERIDES 141 <150 mg/dL 03/08/2023 5:48 AM CDT [facility] HDL CHOLESTEROL 61 >40 mg/dL 5:48 AM CDT [facility] NON-HDL CHOLESTEROL 182(H) <145 mg/dl 03/08/2023 5:48 AM CDT [facility] CHOL/HDL RATIO 3.98 <4.50 03/08/2023 5:48 AM CDT [facility] LDL CHOLESTEROL 154(H) <=130 mg/dL 03/08/2023 5:48 AM CDT [facility]AL LAB[facility] VLDL CHOLESTEROL 28 <=30 mg/dL 03/08/2023 5:48 AM CDT [facility] PROVIDER ORDERED STATUS RANDOM 03/08/2023 5:48 AM CDT [facility] Blood BLOOD SPECIMEN / Unknown Venipuncture / Unknown 03/07/2023 3:14 PM CDT 03/07/2023 3:15 PM CDT Shelby Shaye PATRICIO CHEMISTRY [facility] [address] [place] [address], * COLONOSCOPY (10/17/2018 10:12 AM CDT) 10/17/2018 10:1 2 AM CDT Narrative Transcriptions Arturo Cervantes MD - 10/17/2018 11:43 AM CDT Patient Name: Jacqueline Weeks Procedure Date: 10/17/2018 Gender: Female Date of : 1950 Admit Type: Outpatient Procedure: Colonoscopy Proceduralist: Arturo Cervantes MD , Emmanuelle Caraballo, RN(Nurse) Indications/Pre-Op Diagnosis: Screening for colorectal malignant neoplasm, Last colonoscopy: September 2005 Medications: Fentanyl 100 micrograms IV, Midazolam 4 mgIV, The level of sedation administered wasmoderate Procedure Description: The patient had risks, benefits and alternatives explained to andgave informed consent. The patient had a stable cardiopulmonary status and judged an adequate candidate for conscious sedation. The [id number] was passed through the anus and advanced tothe cecum, identified by appendiceal orifice and ileocecal valve. The colonoscopy was performed without difficulty. The patient toleratedthe procedure well. The quality of the bowel preparation was good. The ileocecal valve, appendiceal orifice, and rectum were photographed. Complications: No immediate complications. Estimated Blood Loss & Specimen: Estimated blood loss: none. Specimen collected - None Findings: The perianal and digital rectal examinations were normal. The entire examined colon appeared normal on direct and retroflexion views. Impressions/Post-Op Diagnosis: - The entire examined colon is normal on direct and retroflexionviews. - No specimens collected. Recommendation: - Patient has a contact number available for emergencies. The signsand symptoms of potential delayed complications were discussed with the patient. Return to normal activities tomorrow. Written discharge instructions were provided to the patient. - Resume previous diet. - Continue present medications. - Await pathology results. - Repeat colonoscopy in 10 years for screening purposes. Moderate Sedation: Moderate (conscious) sedation was administered by the endoscopy nurse and supervised by the endoscopist. The following parameters were monitored: oxygen saturation, heart rate, respiratory rate, blood pressure, adequacy of pulmonary ventilation and reponse to care. [facility] and nursing notes for moderate sedation details. Total physician intraservice time was 16 minutes. Arturo Cervantes MD 10/17/2018 11:43:30 AM This report has been signed electronically. Note Initiated On: 10/17/2018 10:12 AM Procedure Code(s): --- Professional --- 30117, Colonoscopy, flexible; diagnostic, including collection of specimen(s) bybrushing or washing, when performed (separateprocedure) Diagnosis Code(s): --- Professional --- Z12.11, Encounter for screening formalignant neoplasm of colon CPT copyright 2017 [employer]. All rights reserved. The codes documented in this report are preliminary and upon flight test shop mechanic reviewmay be revised to meet current compliance requirements. Scope In: 11:26:29 AM Scope Withdrawal Time 0 hours 7 minutes 51 seconds Scope Out: 11:40:51 AM Arturo Cervantes MD PROCEDURE ORD * (ABNORMAL) XR DXA BONE DENSITY 2 SITES AXIAL [01480.1] (09/10/2018 11:18 AM CDT) Anatomical Region Laterality Modality Spine, HIPS, HIPL, HIPR Other Narrative 09/12/2018 10:04 AM CDT Please see scanned document for results of this study. Shelby PATRICIO DEXA * ANTI HCV [38845.2] (02/10/2014 12:04 PM CDT) HEPATITIS C ANTIBODY Non-Reacti ve Non-Reacti ve 02/10/2014 4:44 PM CDT [facility] Blood specimen (specimen) BLOOD SPECIMEN / Unknown Venipuncture / Unknown 02/10/2014 12:04 PM CDT 02/10/2014 12:04 PM CDT [facility]ative [facility] 02/10/2014 4:44 PM CDT Antibodies to HCV not detected; does not exclude the possibility of exposure to HCV. Emma Zuluaga SEND OUTS [facility] 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
[2024-05-05] MEDS: SODIUM CHLORIDE 0.9 % (FLUSH) 10 ML SYRINGE IVF (11:08)
--- NOTE | 2024-05-05 11:21 | SUR.PREOP ---
TIME?OUT:?1115 right knee mda rmn pt and consent PT/RN/MDA?VERIFICATION?OF?SURGICAL?SITE,?PROCEDURE,?AND?CONSENT OBTAINED?PRIOR?TO?INVASIVE?PROCEDURE.
[2024-05-05] MEDS: CEFAZOLIN 2 GM in 0.9 % SODIUM CHLORIDE Mini-bag 100 ML IVPB ×2 (11:30→17:38)
--- NOTE | 2024-05-05 11:34 | W.PM.H&PU ---
History & Physical Update History & Physical Update H&P Reviewed and patient assessed: No changes noted
--- NOTE | 2024-05-05 11:36 | CRLHL7_ITS ---
For Patients: As a result of the Cures Act, medical imaging exams and procedure reports are released immediately into your electronic medical record. You may view this report before your referring provider. If you have questions, please contact your health care provider. INDICATION: Post operative knee arthroplasty TECHNIQUE: Knee radiograph 2 views right COMPARISON: 03/18/2024 FINDINGS: Bone: No acute fractures or aggressive bone lesions are identified. Joint: The patient is status post a total knee arthroplasty with patellar resurfacing. No significant knee effusion is seen. Soft tissue: Anterior subcutaneous gas and joint gas are present from recent surgery. No radiopaque foreign bodies are seen. IMPRESSION: 1. There is an unremarkable postoperative appearance of the knee arthroplasty. Dictated by: Sudheer Tompkins MD @ 05/05/2024 14:34:22 (Electronically Signed)
[2024-05-05] MEDS: TRANEXAMIC ACID 100 MG/ML INJ 1000 MG IV (11:40)
--- NOTE | 2024-05-05 12:34 | P.NB_ITS ---
Nerve Block Nerve Block Time Seen by Provider: : Date Seen: 05/05/24 Type of block requested by surgeon for post-operative analgesia: adductor canal Side: right Time out performed: Yes Verification of patient name: Yes Verification of date of : Yes Site marking: site marked Name of person performing procedure: Chidi Continuous monitoring Was continuous monitoring of O2 sat, B/P, surface hydrologist, recorded every 15 minutes?: Yes Procedure Checklist: sterile prep, needles and gloves Ultrasound guided. Images saved: Yes Medications given in 5ml increments after negative aspiration: Marcaine %: 0.25 mL: 15 Needle gauge: 20 Precedex (mcg): 25 Patient tolerated procedure well: Yes Block Charges Block Charge (with Pro Fee): Femoral Nerve Use of Ultrasound Machine for Block: Yes- US Guidance/pain block
--- NOTE | 2024-05-05 12:35 | P.NB_ITS ---
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 Images saved: Yes Medications given in 5ml increments after negative aspiration: Marcaine %: 0.25 mL: 9 Needle gauge: 25 Patient tolerated procedure well: Yes Block Charges Block Charge (with Pro Fee): Genicular Nerve Block
--- NOTE | 2024-05-05 12:35 | W.ANESCHARGE ---
Anesthesia Charges Start Date/Time Anesthesia Start Date: 05/05/24 Anesthesia Start Time: 11:26 Stop Date/Time Anesthesia Stop Date: 05/05/24 Anesthesia Stop Time: 13:39 Summary Extremes of Age - Over 70 or under 1: MDA
--- NOTE | 2024-05-05 13:00 | PM.ORPRC ---
Procedure Note Date of procedure: 05/05/24 Procedure: PREOPERATIVE DIAGNOSIS: 1. Right knee osteoarthritis, primary, severe POSTOPERATIVE DIAGNOSIS: 1. Right knee osteoarthritis, primary, severe PROCEDURE: 1. Right total knee arthroplasty - subvastus SURGEON: Mateusz Coe MD. PROGRAM ENGAGEMENT DIRECTOR: KELSEY Stovall - Of note, a skilled assistant operations manager was critical for this case to aid in patient positioning, tissue retraction, limb manipulation/positioning, and closure. ANESTHESIA: Spinal anesthetic IMPLANTS: DePuy J&J all cemented TKA - Attune PS femur size 7, size 5 tibia, 5 mm poly spacer, 35 mm patella TOURNIQUET: 90 min at 300 torr EBL: 50 ml COMPLICATIONS: None evident INDICATIONS: The patient is a pleasant 74-year-old female who has experienced severe right knee pain and difficulty bearing weight. Workup included x-rays which revealed severe osteoarthrosis in the knee. Given the deformity, the dysfunction, and the pain, as well as the failure of nonoperative management, recommendation was made for surgery. FINDINGS: Full-thickness chondral loss diffusely throughout the lateral and patellofemoral compartment and to a lesser degree medial compartment. Significant meniscus pathology both compartments. Large effusion upon entering the joint. Tricompartmental osteophytosis. DESCRIPTION OF PROCEDURE: Following a thorough discussion of risks, benefits, and alternatives consent was obtained and the right knee was marked. The patient was brought to the operating room and placed supine on the operating table. Induction of anesthesia was undertaken. 2 g IV Ancef and 1 g tranexamic acid was administered within 1 hr of incision preoperatively. Proper time-out was performed identifying proper patient, site, procedure. The operative extremity was prepped and draped in the appropriate sterile fashion using ChloraPrep after the patient was positioned supine with all bony prominences well padded. A longitudinal, anterior, midline skin incision was made starting approximately 3cm proximal to the superior pole of the patella and advanced distal to the tibial tubercle. A subvastus approach was utilized. A medial subperiosteal sleeve was created with knife, valdez elevator and curved osteotome. The retropatellar fatpad was resected and the synovium in the suprapatellar pouch excised to visualize the anterior femoral cortex. Femoral preparation was performed via an intramedullary guide. Step drill allowed access into the femoral canal. The distal cutting guide was placed with 6 ? of valgus and 10 mm cut on the distal femur. Femur was sized using a posterior referencing guide as well as trans epicondylar axis and Whitesides line in 3? of external rotation. This found have a best fit with the sizing noted above. The 4 in 1 cutting block was then placed, and the distal femur shaped accordingly. The box cut was then created and the trial implant inserted to confirm appropriate fit. We turned our attention to the proximal tibia. Extramedullary guide was utilized for cutting with the goal of being 90 degree cut from the mechanical axis of the tibia in the varus/valgus plane utilizing tibial crest as the primary alignment. Initially a 3 mm resection was performed from the medial tibial plateau. An additional 2 mm did require resection to achieve appropriate balance. Ultimately, balancing was achieved in both flexion and extension in both varus and valgus. The knee was able to achieve full extension as well comfortably. The patella was initially measured and found have a thickness of 24 mm. It was resected back to approximately 14 mm. It was sized to be a best fit with as noted above. This was drilled, trial placed. All trials were placed and found to have an excellent stability and balance. At this stage, trial implants were removed, the knee was thoroughly irrigated with normal saline, and the cement was mixed. After irrigation, the knee was thoroughly dried, and cement placed, with the real tibial and femoral implants placed along with the patella. Trial poly spacer was placed and confirmed to have excellent range of motion and full extension, and the real poly spacer opened and inserted. All extra cement was removed, and a 3 min Betadine soak performed. Finally, a final irrigation round with normal saline was performed. Closure performed with 0 Vicryl and #0 Stratafix for the quad tendon/retinaculum. 2-0 Vicryl for the subcutaneous and 4-0 Stratafix for subcuticular closure. Dressings were applied and the patient was awoken from anesthesia after the tourniquet deflated and transferred the PACU in stable condition. A skilled assistant operations manager was critical for this case to aid in patient positioning, tissue retraction, bone exposure, limb manipulation/positioning, patient safety, and closure. PLAN: 1. Weight bear as tolerated operative extremity. 2. 23 hr perioperative antibiotics. 3. Ice. 4. PT/OT consults for ambulation assistance/mobility education. 5. Social work consult for discharge planning. 6. DVT prophylaxis with at SCDs and aspirin twice daily.
--- NOTE | 2024-05-05 13:37 | W.ANESCHARGE ---
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
[2024-05-05] MEDS: fentaNYL 100 MCG/2 ML inj 50 MCG IVP (13:55)
--- NOTE | 2024-05-05 14:08 | SUR.PHASEI ---
Anesthesiologist, Estiven Murillo, aware of patient's heart rate. no inteventions needs at this time. patients is experiencing no symptoms of low heart rate.
--- NOTE | 2024-05-05 15:15 | PM.IMCN1 ---
Date of Consult Patient: Vicky Patient Consult date: 05/05/24 Requesting Physician: Orthopedics Primary Care Provider: Shelby Leonardo PA-C Consult Narrative Narrative: Jacqueline Weeks is a 74 year old female admitted to the hospital for right total knee arthroplasty. Procedure performed by Dr. Coe today. No apparent operative complications. He has requested consultation for medical management following surgery. Patient was initially feeling chilled after surgery but that has resolved with warm blankets. She is feeling some pain behind her right knee but otherwise is feeling well. No nausea. She had a preop physical which did not identify any significant medical problems to address perioperatively. She is due for left knee arthroplasty when she recovers from this surgery. No previous complications related previous surgeries, problems with anesthesia bleeding or clotting. Review of Systems Narrative: She has no other concerns at this time. She has had recent evaluation for hearing loss. [facility] Medical History (Updated 05/05/24 @ 15:33 by Damir Todd MD) OCD (obsessive compulsive disorder) ?F42.9 - Obsessive-compulsive disorder, unspecified (ICD-10) Anxiety ?F41.9 - Anxiety disorder, unspecified (ICD-10) Dysthymia ?F34.1 - Dysthymic disorder (ICD-10) Inclusion cyst of vulva ?N90.7 - Vulvar cyst (ICD-10) Arthritis of left knee ?M17.12 - Unilateral primary osteoarthritis, left knee (ICD-10) Arthritis of right knee ?M17.11 - Unilateral primary osteoarthritis, right knee (ICD-10) Skin lesion of face ?L98.9 - Disorder of the skin and subcutaneous tissue, unspecified (ICD-10) Depression ?F32.A - Depression, unspecified (ICD-10) Back pain ?M54.9 - Dorsalgia, unspecified (ICD-10) Asymmetrical hearing loss ?H91.8X3 - Other specified hearing loss, bilateral (ICD-10) Hypertension ?I10 - Essential (primary) hypertension (ICD-10) Surgical History (Updated 05/05/24 @ 15:30 by Damir Todd MD) History of arthroplasty of right knee ?Z96.651 - Presence of right artificial knee joint (ICD-10) History of hysterectomy (1988) ?Z90.710 - Acquired absence of both cervix and uterus (ICD-10) Family History (Updated 03/18/24 @ 13:06 by Stephy Grubbs ~ POWDER HAND, POWDER HAND) Sister Pulmonary embolism Father Pulmonary embolism Social History (Updated 05/05/24 @ 15:31 by Damir Todd MD) Narrative: She lives with her in a home in [facility]. They have a split-level home with 8 steps to get to the main level where she can live. She does not smoke. She does not drink alcohol. What is your current living situation?: I presently have a place to live Problems where you live: no known problems In the past 12 months, utilities in danger of being shut off: no In the past 12 mos, have been you worried that your food would run out before you had money to buy more?: never true In the past 12 mos, the food you bought just didn't last and you didn't have money to buy more?: never true Highest level of school completed/degree received: Bachelor's degree Smoking Status: Never smoker Do you use any of these nicotine containing products: None Second hand tobacco smoke exposure: No How often do you have a drink containing alcohol: monthly or less Alcohol type: wine How many standard drinks containing alcohol do you have on a typical day: 1 or 2 How often do you have six or more drinks on one occasion: Never AUDIT-C Alcohol total score: 1 Non-prescribed substance use: denies use Caffeine: Yes (tea am soda) How often does anyone, including family, friends and others, physically hurt you: never How often does anyone, including family, friends and others, insult or talk down to you: never How often does anyone, including family, friends and others, threaten you with harm: never How often does anyone, including family, friends and others, scream or curse at you: never service: No Meds Home Medications and Allergies Home Medications ?Medication ?Instructions ?Recorded ?Confirmed ?Type citalopram 40 mg tablet 40 mg PO DAILY 03/10/22 05/05/24 History hydrochlorothiazide 25 mg tablet 25 mg PO DAILY 03/10/22 05/05/24 History losartan 25 mg tablet 25 mg PO DAILY 03/10/22 05/05/24 History calcium carbonate (Calcium 600) 600 mg PO QDAY 03/18/24 05/05/24 History celecoxib 200 mg capsule 200 mg PO BID 03/18/24 05/05/24 History cyclobenzaprine 10 mg tablet 10 mg PO BID PRN 03/18/24 05/05/24 History fluticasone propionate 50 1 spray intranasal Q12H 03/18/24 05/05/24 History mcg/actuation nasal spray,suspension multivitamin 1 tab PO QDAY 03/18/24 05/05/24 History mv-mn-folic 200 mcg-vit K 15 1 cap PO DAILY 03/18/24 05/05/24 History mcg-lutein 5 mg-zeaxanthin 1 mg capsule (PreserVision AREDS 2 Plus Multivit) rosuvastatin 10 mg tablet 10 mg PO HS 03/18/24 05/05/24 History lutein 20 mg capsule 20 mg PO DAILY 05/05/24 05/05/24 History propylene glycol 0.6 % eye drops 1 drp ophthalmic (eye) DAILY PRN 05/05/24 05/05/24 History (Lubricant Eye (propylene glycol)) Allergies Allergy/AdvReac Type Severity Reaction Status Date / Time doxycycline Allergy Severe Chest Pain Verified 05/05/24 10:11 erythromycin base Allergy Severe Verified 05/05/24 10:11 Exam Narrative: Exam Narrative: She is alert and appears in no distress. Somewhat hard of hearing. Mildly hoarse voice. Oropharynx with dry mucous membranes and small airway. Neck is supple without mass or adenopathy. No stridor. Respirations are clear to auscultation. Breathing is unlabored. Cardiovascular: S1, S2, regular bradycardia. No murmur gallop or rub. Abdomen: Bowel sounds active. Abdomen is soft without tenderness or mass. Extremities with intact pulses and sensation. No significant edema. Knee without abnormal bruising swelling or erythema Const: Vital Signs, click to edit/add: Vital Signs - 24 hr 05/05/24 11:09 05/05/24 11:22 05/05/24 13:35 Temperature 97.8 F 97.1 F L Pulse Rate 54 L 51 L 44 L Respiratory Rate 18 18 14 Blood Pressure 180/78 H 141/70 H 100/57 L Pulse Oximetry 97 98 91 Oxygen Delivery Me thod Room Air Nasal Cannula Non Rebreather Mas k Oxygen Flow Rate 3 10 Fraction of Inspir ed Oxygen 100 05/05/24 13:40 05/05/24 13:45 05/05/24 13:50 Temperature Pulse Rate 44 L 45 L 47 L Respiratory Rate 14 14 16 Blood Pressure 104/56 L 110/67 110/66 Pulse Oximetry 94 97 99 Oxygen Delivery Me thod Non Rebreather Mas k Non Rebreather Mas k Room Air Oxygen Flow Rate 10 10 Fraction of Inspir ed Oxygen 100 100 05/05/24 13:55 05/05/24 14:00 05/05/24 14:05 Temperature Pulse Rate 43 L 40 L 41 L Respiratory Rate 16 16 14 Blood Pressure 112/67 100/63 100/63 Pulse Oximetry 92 97 97 Oxygen Delivery Me thod Room Air Non Rebreather Mas k Non Rebreather Mas k Oxygen Flow Rate 10 10 Fraction of Inspir ed Oxygen 100 100 05/05/24 14:10 05/05/24 14:15 05/05/24 14:20 Temperature 96.7 F L 96.6 F L 96.8 F L Pulse Rate 41 L 42 L 45 L Respiratory Rate 14 16 16 Blood Pressure 108/58 L 105/59 L 101/60 Pulse Oximetry 100 94 96 Oxygen Delivery Me thod Non Rebreather Estrellita k Room Air Room Air Oxygen Flow Rate 10 Fraction of Inspir ed Oxygen 100 05/05/24 14:25 05/05/24 14:30 Temperature 97.0 F L 97.1 F L Pulse Rate 46 L 40 L Respiratory Rate 16 18 Blood Pressure 116/65 129/70 Pulse Oximetry 95 95 Oxygen Delivery Me thod Room Air Room Air Oxygen Flow Rate Fraction of Inspir ed Oxygen Documenting provider has reviewed patient's vital signs: yes Assessment and Plan Assessment and plan (1) History of arthroplasty of right knee: Problem comment: 05/05/2024, Dr. Coe, no complications Status: Acute (2) Bradycardia: Problem comment: Postoperatively he her heart rate is regular and 40 beats per minute. She is unaware of this. No previous history of heart problems including bradycardia. Preop heart rate was 60. No medications to cause bradycardia. Possibly related to anesthesia. Further evaluation may be warranted if symptomatic or not resolved overnight. Status: Acute Plan Patient is admitted for postoperative care, evaluation and management of complications and management of medical problems. At this point the only potential complication is bradycardia. Will monitor overnight and address this as needed. Total Time Spent Total Time Spent: Total time spent today is 40 minutes in coordination of care discussing with patient and family ongoing evaluation and management of postoperative care for knee surgery and bradycardia
[2024-05-05] MEDS: OXYCODONE 5 MG TABLET PO ×3 (15:40→20:39)
[2024-05-05] MEDS: LACTATED RINGERS 1000 ML 1,000 ML 75 ML IV (16:40)
[2024-05-05] MEDS: ONDANSETRON 2 MG/ML inj 4 MG IVP (18:09)
--- NOTE | 2024-05-05 19:14 | PC.NURSE ---
Nursing Care Hours: 9020-4028 Pt arrived to unit at 1425 awake and oriented but drowsy. Reported from PACU pt was bradycardic and asymptomatic. EKG done showing sinus domitila. Pt remained bradycardic without symptoms through the shift. Pain reported in back of knee, attempts to reposition did not help. Treated per eMAR and effective. Positioned to edge of bed for meal. Post meal, pt became nauseous, zofran given and effective. Ax1 to [facility] with walker and gait belt. Pt became nauseous and vomited about 15ml. Assisted back to bed on L side. Pt c/o sharp pain traveling from hip to knee. attempts to reposition did not help. Pt declined further intervention and wants to just wait it out.
[2024-05-05] MEDS: SENNOSIDES 1 TAB TABLET 2 TAB PO (20:36)
[2024-05-05] MEDS: ROSUVASTATIN CALCIUM 10 MG TABLET PO (20:36)
[2024-05-05] MEDS: ASPIRIN 81 MG TABLET EC PO (20:37)
[2024-05-06] MEDS: CEFAZOLIN 2 GM in 0.9 % SODIUM CHLORIDE Mini-bag 100 ML IVPB ×2 (00:32→08:48)
[2024-05-06] MEDS: OXYCODONE 5 MG TABLET PO ×3 (00:33→10:54)
[2024-05-06] MEDS: LORazepam 0.5 MG TABLET PO (01:55)
[2024-05-06 03:00] VITALS: PULSE 66; RESP 16; O2SAT 95
--- NOTE | 2024-05-06 06:30 | PC.NURSE ---
Shift note: surgical dressing is C/D/I, surrounding tissue is intact, pedal pulses present. Pt walks with SBA/assist of 1, belt and walker. She rates pain 5-6/10, RN treated per eMAR with relief and pt is able to rest overnight. She is voiding, no c/o nausea, lightheadedness or dizziness.
[2024-05-06 06:35] LABS: Basophils Absolute Auto 0.02 K/uL (0.00-0.30); Basophils Percent Auto 0.2 % (0.0-3.0); Eosinophils Absolute Auto 0.02 K/uL (0.00-0.50); Eosinophils Percent Auto 0.2 % (0.0-7.0); Hematocrit 34.7 % (33.0-51.0); Hemoglobin* 10.7 gm/dL (12.0-16.0); Immature Granulocytes Abs Auto 0.01 K/uL (0.00-0.30); Immature Granulocytes Pct Auto 0.1 %; Lymphocytes Percent Auto 16.4 % (20-44); Mean Corpuscular HGB Conc 31 gm/dL (32-36); Mean Corpuscular Hemoglobin 29 pg (26-34); Mean Corpuscular Volume 94 fL (80-100); Monocytes Percent Auto 14.7 % (0.0-11.0); Neutrophils Percent Auto 68.4 % (42.0-72.0); Platelet Count* 349 K/uL (140-440); RDW Coefficient of Variation % 14.4 % (11.5-15.5); Red Blood Count 3.69 m/uL (4.00-5.20); White Blood Count* 8.92 K/uL (4.50-11.00)
[2024-05-06] MEDS: OMEPRAZOLE 20 MG CAPSULE DR 40 MG PO (06:39)
[2024-05-06 06:45] LABS: Sodium* 131 mmol/L (135-149)
[2024-05-06 06:48] LABS: Blood Urea Nitrogen* 13 mg/dL (7-30); Creatinine* 0.6 mg/dL (0.5-1.5); Est. Creatinine Clearance* 45.76; Estimated Glomerular Filt Rate 95 ml/min
[2024-05-06 06:49] LABS: Slide Review Reflex No
[2024-05-06 07:00] VITALS: BP 132/66; PULSE 59; PULSE 61; RESP 14; TEMP 36.5; O2SAT 92
--- NOTE | 2024-05-06 08:48 | PM.ORPN ---
Subjective Subjective Date Seen: 05/06/24 Principal diagnosis: Status postop day 1 right total knee arthroplasty Interval history: Patient reports doing well. Events yesterday include nausea and vomiting, lightheaded, all which have resolved today. States that she has to the bathroom now. Pain managed with scheduled and PRN medications, ice. Rates pain 07/04. DVT prophylaxis: 81 mg aspirin by mouth twice daily, SCDs, walking. Denies fevers, chills, aches, N/V, CP, SOB/LINARES, or lightheadedness. States that she sometimes stops breathing because of the pain and has to remind herself to take a breath. Denies any shortness of breath or dyspnea. Ortho Exam Narrative Exam Narrative: -Patient appears comfortable; no apparent acute distress -Alert and oriented times 3 -Operative knee mildly swollen; soft tissues supple; no ecchymosis; no erythematous streaking Warmth appropriate -Surgical dressing clean, dry, intact; no drainage -Bilateral calfs soft; no significant swelling, edema, tenderness, erythema, discoloration, warmth, or palpable cords -2+ DP/PT pulses, intact dermatomes and myotomes distally (5/5 strength) Const Vital Signs, click to edit/add: Vital Signs - 24 hr 05/05/24 11:09 05/05/24 11:22 05/05/24 13:35 Temperature 97.8 F 97.1 F L Pulse Rate 54 L 51 L 44 L Pulse Rate [Left Pulse Oximeter] Respiratory Rate 18 18 14 Blood Pressure 180/78 H 141/70 H 100/57 L Blood Pressure [Right Arm] Pulse Oximetry 97 98 91 Oxygen Delivery Method Room Air Nasal Cannula Non Rebreather Mask Oxygen Flow Rate 3 10 Fraction of Inspired Oxygen 100 05/05/24 13:40 05/05/24 13:45 05/05/24 13:50 Temperature Pulse Rate 44 L 45 L 47 L Pulse Rate [Left Pulse Oximeter] Respiratory Rate 14 14 16 Blood Pressure 104/56 L 110/67 110/66 Blood Pressure [Right Arm] Pulse Oximetry 94 97 99 Oxygen Delivery Method Non Rebreather Mask Non Rebreather Mask Room Air Oxygen Flow Rate 10 10 Fraction of Inspired Oxygen 100 100 05/05/24 13:55 05/05/24 14:00 05/05/24 14:05 Temperature Pulse Rate 43 L 40 L 41 L Pulse Rate [Left Pulse Oximeter] Respiratory Rate 16 16 14 Blood Pressure 112/67 100/63 100/63 Blood Pressure [Right Arm] Pulse Oximetry 92 97 97 Oxygen Delivery Method Room Air Non Rebreather Mask Non Rebreather Mask Oxygen Flow Rate 10 10 Fraction of Inspired Oxygen 100 100 05/05/24 14:10 05/05/24 14:15 05/05/24 14:20 Temperature 96.7 F L 96.6 F L 96.8 F L Pulse Rate 41 L 42 L 45 L Pulse Rate [Left Pulse Oximeter] Respiratory Rate 14 16 16 Blood Pressure 108/58 L 105/59 L 101/60 Blood Pressure [Right Arm] Pulse Oximetry 100 94 96 Oxygen Delivery Method Non Rebreather Mask Room Air Room Air Oxygen Flow Rate 10 Fraction of Inspired Oxygen 100 05/05/24 14:25 05/05/24 14:30 05/05/24 14:45 Temperature 97.0 F L 97.1 F L Pulse Rate 46 L 40 L 40 L Pulse Rate [Left Pulse Oximeter] Respiratory Rate 16 18 18 Blood Pressure 116/65 129/70 132/72 Blood Pressure [Right Arm] Pulse Oximetry 95 95 95 Oxygen Delivery Method Room Air Room Air Room Air Oxygen Flow Rate Fraction of Inspired Oxygen 05/05/24 15:00 05/05/24 15:00 05/05/24 15:00 Temperature Pulse Rate 40 L Pulse Rate [Left Pulse Oximeter] Respiratory Rate 18 16 Blood Pressure 148/76 H Blood Pressure [Right Arm] Pulse Oximetry 95 95 95 Oxygen Delivery Method Room Air Room Air Oxygen Flow Rate Fraction of Inspired Oxygen 05/05/24 15:15 05/05/24 15:30 05/05/24 15:57 Temperature Pulse Rate 45 L 45 L 51 L Pulse Rate [Left Pulse Oximeter] Respiratory Rate 18 16 Blood Pressure 148/80 H 150/118 H Blood Pressure [Right Arm] Pulse Oximetry 95 95 Oxygen Delivery Method Room Air Room Air Oxygen Flow Rate Fraction of Inspired Oxygen 05/05/24 16:00 05/05/24 16:30 05/05/24 17:30 Temperature 98.6 F Pulse Rate 43 L 46 L 48 L Pulse Rate [Left Pulse Oximeter] Respiratory Rate 16 16 Blood Pressure 121/80 118/61 150/118 H Blood Pressure [Right Arm] Pulse Oximetry 95 94 94 Oxygen Delivery Method Room Air Room Air Room Air Oxygen Flow Rate Fraction of Inspired Oxygen 05/05/24 17:50 05/05/24 18:30 05/05/24 19:30 Temperature 97.6 F Pulse Rate 51 L 49 L Pulse Rate [Left Pulse Oximeter] 45 L Respiratory Rate 18 18 Blood Pressure 108/68 160/76 H Blood Pressure [Right Arm] Pulse Oximetry 94 96 Oxygen Delivery Method Room Air Room Air Oxygen Flow Rate 10 Fraction of Inspired Oxygen 100 05/05/24 20:30 05/05/24 23:00 05/05/24 23:00 Temperature 97.8 F Pulse Rate 50 L 55 L Pulse Rate [Left Pulse Oximeter] Respiratory Rate 18 Blood Pressure 162/78 H Blood Pressure [Right Arm] Pulse Oximetry 95 96 Oxygen Delivery Method Room Air Oxygen Flow Rate Fraction of Inspired Oxygen 05/05/24 23:00 05/05/24 23:00 05/06/24 03:00 Temperature 98 F Pulse Rate Pulse Rate [Left Pulse Oximeter] 58 L 66 Respiratory Rate 20 16 Blood Pressure Blood Pressure [Right Arm] 140/69 H Pulse Oximetry 96 96 95 Oxygen Delivery Method Room Air Room Air Room Air Oxygen Flow Rate Fraction of Inspired Oxygen Assessment and Plan Assessment and plan (1) History of arthroplasty of right knee: Problem details: 05/05/2024, Dr. Coe, no complications Status: Acute (2) Bradycardia: Problem details: Postoperatively her heart rate is regular and 40 beats per minute. She is unaware of this. No previous history of heart problems including bradycardia. Preop heart rate was 60. No medications to cause bradycardia. Possibly related to anesthesia. Further evaluation may be warranted if symptomatic or not resolved overnight. Status: Acute Plan - Complete 23 hour perioperative antibiotics. - PT/OT consult for education and assistance. - Social work consult for discharge planning - Prescribed analgesics as needed - DVT prophylaxis: 81 mg aspirin by mouth twice daily, walking, and SCDs - Anticipation is for discharge to home with family/friends today 05/06/2024 if the patient remains medically stable, pain is controlled, and they are safe with mobilization.
[2024-05-06] MEDS: CITALOPRAM HYDROBROMIDE 20 MG TABLET 40 MG PO (08:49)
[2024-05-06] MEDS: SENNOSIDES 1 TAB TABLET 2 TAB PO (08:50)
[2024-05-06] MEDS: hydroCHLOROthiazide 25 MG TABLET PO (08:50)
[2024-05-06] MEDS: LOSARTAN POTASSIUM 50 MG TABLET 25 MG PO (08:50)
[2024-05-06] MEDS: ASPIRIN 81 MG TABLET EC PO (08:50)
[2024-05-06] MEDS: ACETAMINOPHEN 500 MG TABLET 1000 MG PO (09:45)
[2024-05-06] MEDS: ONDANSETRON 2 MG/ML inj 4 MG IVP (09:49)
[2024-05-06 11:00] VITALS: BP 147/72; PULSE 59; RESP 18; TEMP 36.4; O2SAT 92
--- NOTE | 2024-05-06 14:11 | PC.NURSE ---
Pt discharged @ 1320 via wheelchair, accompanied by . Back to home. Discharge forms reviewed and signed. Belongings signed. IV removed. Pt AxOx4, moderate nausea. Pain controlled. Emesis bag at hand. Active ice. Pt requested to leave and was OK to go to pharmacy twice, awaiting orders for PO giancarlofran from .
== END 2024-05-06 13:20 | disposition home or self-care (01) ==
LOC: OR 10:00 → MEDSURG 10:04
PROVIDERS: PCP Physician Assistant Medical; Visit Provider Orthopaedic Surgery Sports Medicine
PROC: (CPT 27447; principal; 2024-05-05 11:30)
DX: M17.11 Unilateral primary osteoarthritis, right knee (principal); G89.18 Other acute postprocedural pain; R00.1 Bradycardia, unspecified; F42.9 Obsessive-compulsive disorder, unspecified; F41.9 Anxiety disorder, unspecified; F32.A Depression, unspecified; I10 Essential (primary) hypertension
CPT/HCPCS: 27447; 01402; 36415; 64447; 64454; 73560; 76942; 82565; 84132; 84295; 84520; 85025; 93005; 97110; 97116; 97162; 97165; 97530; 97535; 99100; A9270; C1776; J0665; J0690; J1100; J2250; J2405; J2704; J3010; J7120

== ENCOUNTER 2024-08-05 13:56 | Outpatient (RCR) | payer MEDICARE, OTHER, SELFPAY ==
--- NOTE | 2024-08-06 13:51 | PT.OPEX ---
PT [place] [employer] Outpatient Eval PT [facility] Outpatient Eval Start: 08/06/24 13:37 Freq: Status: Active Protocol: Document 08/05/24 15:00 HLA (Rec: 08/06/24 13:48 HLA [id number]) E-signed By Dalila Fiore, PT, DPT Physical Therapy Outpatient Evaluation Insurance Information Insurance Name Medicare B,[employer] Medical Diagnosis preiop teaching L TKA Hx R TKA 05/18 Hx of HTN, MAKAH, depression, anxiety, OCD, obesity, domitila cardia, lumbar disk disease Treating Diagnosis pain L knee, OA, preop teaching for L TKA Referring MD Coe Subjective Preferred Name Marlene Subjective R TKA, underwent rehab at [facility] in [facility]. SOme difficulty pain R knee on stairs, dx of patellar clunk syndrome. L knee also problematic and is undergoing L TKA. Per pt, surgeon is hoping increased L knee ROM will help improve recovery of R knee. Pain Comments pain L knee amb longer distances. Date of Last Physician Visit 07/25/24 Date of Surgery (If applicable) 08/11/24 Current Work Status Retired Precautions Weight Bearing Status Weight Bear as Tolerated Objective Range of Motion L hip 0-105 flex, abd 0-30, ER 0-45, IR 0-45 L knee 5-105 L ankle DF to 15, PF WNL R hip flex 0-100, abd 0-30, ER 0-45, IR 0-45 R knee 0-125 L ankle DF to 15, PF WNL Strength L hip 4/5 L knee 4/5 L ankle 4/5 R hip 4/5 R knee 4-/5 R ankle 4/5 Swelling self report edema L knee intermittently Palpation pain medial R knee joint line, no pain palpating L knee Balance & Gait Pt amb with B knee flex, mild hip flex, narrow base Reciprcal stairs with UE support balance screen good static/ dynamic standing Sensation/Reflexes intact light touch Assessment Assessment/Impression tala is 74 year old female w/ hx of HTN, MAKAH, dep, anxiety, OCD, obesity, domitila, LDD, R KA 05/18. She is undergoing L TKA. Pt has ongoing pain R knee. She is ind at baseline, amb no device. Lives with spouse in split entry home. Pt plans to return home after surgery, OP PT [place] in [place]. She owns a walker and a cane. Pt presents with general weakness, ROM 0-125 L and R knee. She transfers ind and amb level and uneven surfaces ind. Pt was instructed in TKA ex program (quad sets, ham sets, ankle pumps, heel slides , SAQ, SLR, seated knee flex/ ext and hamstring stretches) per protocol to be practiced pre-operatively and for improved learning post- operatively. Pt was instructed in hospital post-op progression in PT, safety, fall prevention. Pt was instructed in positioning in chair, use of ice/polar care, bed, transfer safety, gt safety with walker, stairs, car transfers and outpatient therapy progression. Plan of Care Rehabilitation Potential Good Physical Therapy Goals 1. Within this session: Pt will verbalize understanding of pre-op/post-op safety, mobility and exercises with home program issued and pt returning for ongoing therapy after TKA replacement. Coordination/Communication With Referral Source,Patient Caregiver,Employer,Chemistry Account Manager ([employer]) Treatment Plan/Direct Interventions Gait Training,Manual Therapy, Neuromuscular Re-ed,Self-Care/ Home Management,Therapeutic Activities,Therapeutic Exercises Frequency/Duration 1x Patient Will Be Discharged From Therapy Completion of LTG(s),Skills Plateau,Independent w/HEP, Independently Progressing Evaluation Billing Untimed Code Treatment Minutes 10 PT Eval No Charge No Complexity Low Certification Information Initial Certification Date 08/06/24 Ending Certification Date 11/03/24 Provider Signature Required Yes Provider Signature Shows Agreement With POC & Medical Necessity Physician NPI Number Write NPI# Here Physician Comment/Change : Physician Signature & Date Requested Please Sign/Date Here
== END 2024-08-05 14:47 | disposition home or self-care (01) ==
PROVIDERS: PCP Physician Assistant Medical; Visit Provider Orthopaedic Surgery Sports Medicine
DX: M17.12 Unilateral primary osteoarthritis, left knee (principal); Z96.652 Presence of left artificial knee joint; M25.562 Pain in left knee; Z51.89 Encounter for other specified aftercare
CPT/HCPCS: 97110; 97161

== ENCOUNTER 2024-08-11 11:01 | Day surgery (SDC) | payer MEDICARE, OTHER, SELFPAY ==
[2024-08-11] VITALS (22 sets, daily range): BP systolic 111–163; BP diastolic 59–88; PULSE 50–66; RESP 11–26; TEMP 35.6–36.7; O2SAT 90–100; BMI 32.7
--- OUTSIDE RECORDS SUMMARY | 2024-08-11 11:06 | XMS_ITS | Clinical Summary ---
Author Organization [facility] Address [place], [place] [address] Care Team Providers Care Dump Attendant Name Role Phone Shelby Leonardo Primary Care Provider Allergies Active Allergy Reactions Criticality Noted Date Comments Doxycycline Headache 09/21/2023 Erythromycin Palpitations,Tachyc ardia 09/01/2011 Unlisted Allergen (Include Detail In Comments) Chest Pain 12/30/2015 PN: Arythromycin - chest tightness Medications Multivitamin Cmb No.21-Iron-FA (CENTRUM ULTRA WOMEN'S) 18-400 mg-mcg Tab Take by mouth. 0 09/01/19 12 Active calcium carbonate (Calcicarb) 650 mg calcium (1,625 mg) tablet Take 1 Tablet (1,625 mg) by mouth once daily. 0 10/19/19 23 Active LORazepam (ATIVAN) 1 mg tabletIndications: Claustrophobia Take 1 Tablet (1 mg) by mouth one time for 1 dose. Take 1/2-1 hour before the MRI 1 Tablet 08/01/19 24 Active fluticasone (50 mcg per actuation) nasal solution (FLONASE)Indicatio ns:Post-nasal drip Inhale 1 [place] to both nostrils two times daily. 16 g 2 10/25/19 24 Active citalopram (CELEXA) 40 mg tabletIndications: Dysthymia Take 1 Tablet (40 mg) by mouth once daily. 90 Tablet 3 03/10/20 24 Active hydroCHLOROthiazid e 25 mg tabletIndications: Hypertension, unspecified type Take 1 Tablet (25 mg) by mouth once daily. 90 Tablet 3 03/10/20 24 Active losartan (COZAAR) 25 mg tabletIndications: Hypertension, unspecified type Take 1 Tablet (25 mg) by mouth once daily. 90 Tablet 3 03/10/20 24 Active rosuvastatin (CRESTOR) 10 mg tabletIndications: Hyperlipidemia, unspecified hyperlipidemia type Take 1 Tablet (10 mg) by mouth at bedtime. 90 Tablet 3 03/10/20 24 Active antiox #8/om3/dha/epa/lut /zeax (PRESERVISION AREDS 2, OMEGA-3, ORAL) Take by mouth. Activ e LUTEIN ORAL Take by mouth. Act walt omeprazole (PRILOSEC) 40 mg Delayed-Release capsuleIndications :Mixed conductive and sensorineural hearing loss of right ear with restricted hearing of left ear Take 1 Capsule (40 mg) by mouth once daily before a meal. 14 Capsule 04/03/20 24 Active cyclobenzaprine (FLEXERIL) 10 mg tabletIndications: Chronic midline low back pain without sciatica,Muscle spasm Take 1 Tablet (10 mg) by mouth 2 times daily if needed for Muscle Spasm. 60 Tablet 3 03/12/20 23 025 Discontin ued(*Shira ent states no longer taking) glucosam/chond/gly cosaminog/C (GLUCOSAM-CONDROIT IN-GA GLYCN-C ORAL) Take by mouth. 025 Discontin ued(*Shira ent states no longer taking) diazePAM (Valium) 2 mg tabletIndications: Sudden hearing loss of both ears Take 1 tab 30 minutes prior to procedure. Can take additional dose if needed 2 Tablet 04/03/20 24 025 Discontin ued(*Shira ent states no longer taking) Active Problems Problem Noted Date Diagnosed Date Asymmetrical sensorineural hearing loss 11/14/19 Depression, recurrent 03/07/2023 Arthritis of right knee [...] Encounters Date Type Department Care Team Description 08/01/2024 10:50 AM DRUM CARRIER Office Visit [facility] [address] [place] [address] Shelby Leonardo PA Preoperative Exam (L knee) 08/01/2024 Travel 07/30/2024 Orders Only [facility] Scanner 1 scan: (1-Ord) TAREEN DERMATOLOGY, BIOPSY BY SHAVE METHOD, 07/30/2024 07/29/2024 3:15 PM DRUM CARRIER Office Visit [facility] [address] [place] [id number] Harman Smart MD Recheck (Recheck right ear, been ok and feels a little plugged) 07/29/2024 Travel 05/15/2024 Refill [facility] [address] [place] [address] Harman Smart MD Refill Request (Omeprazole) from Last 3 Months Immunizations Name Administration [...] is your housing situation today? 1 09/20/2023 Utilities Answer Date Recorded Do you have trouble paying f or utilities (for example, heat, electricity, water, phone)? 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 on file Not on file Not on file Obstetrics History Para Term AB IAB SAB Ectopic Multiple Livin g Live Births 3 2 2 Date Outcome GA Total Labor Labor/2nd/3rd Weight Sex Type Anes PTL Brie A1 A5 Name Clin Para Para Last Filed Vital Signs Vital Sign Reading Time Taken Comments Blood Pressure 129/80 08/01/2024 10:56 AM DRUM CARRIER Pulse 56 08/01/2024 10:56 AM DRUM CARRIER Temperature 36.6 C (97.8 F) 10/08/2023 10:26 AM CDT Respiratory Rate 14 10/11/2023 1:01 PM CDT Oxygen Saturation 98% 08/01/2024 10:56 AM DRUM CARRIER Inhaled Oxygen Concentration - - Weight 92.1 kg (203 lb) 08/01/2024 10:56 AM DRUM CARRIER Height 165.9 cm (5' 5.3) 03/10/2024 3:03 PM CDT Body Mass Index 33.47 03/10/2024 3:03 PM CDT Plan of Treatment Health Maintenance Due Date Last Done Comments RSV vaccine for adults or (1 - Risk 60-74 years 1-dose series) 2012 Tetanus booster 12/16/2022 12/16/2012, 02/23, 05/05/2004 BMI [...] 65+ Completed 09/10/2018 Pneumococcal series for age 50+ Completed 05/28/2019, 05/24/2018, 05/05/2004 Zoster (shingles) series for age 50+ Completed 07/29/2019, 04/08/2019 COVID-19 vaccine series Completed 03/10/20, 08/01/2023, 11/28/2022, Additional history exists Influenza for age 65+ Completed 03/10/2024 , 08/01/2023, 03/06/2022, Additional history exists Procedures Procedure Name Priority Date/Time Associated Diagnosis Comments HEMOGLOBIN Routine 08/01/2024 11:32 AM DRUM CARRIER Preop general physical exam BASIC METABOLIC PANEL Routine 08/01/2024 11:32 AM DRUM CARRIER Preop general physical exam SCAN-OPERATIVE/PROCE DURE REPORT 07/30/2024 12:00 AM DRUM CARRIER HEARING AID MEDICAL CLEARANCE Routine 07/29/2024 4:48 PM DRUM CARRIER Sudden hearing loss of both ears XR MAMMO TONG BILAT SCREEN Routine 04/21/2024 3:36 PM CDT Visit for screening mammogram LIPID PANEL W REFLEX MEASURED LDL Routine 03/07/2023 3:14 PM CDT Screening cholesterol level COLONOSCOPY 10/17/2018 10:12 AM CDT XR DXA BONE DENSITY 2 SITES AXIAL Routine 09/10/2018 11:18 AM CDT Menopause ANTI HCV Routine 02/10/2014 12:04 PM CDT Need for hepatitis C screening test from Last 3 Months or Most Recently Relevant to Health Maintenance Results * HEMOGLOBIN (08/01/2024 11:32 AM DRUM CARRIER) HEMOGLOBIN 11.9 11.7 - 15.5 g/dL [facility] [employer] [facility] Blood BLOOD SPECIMEN / Unknown 08/01/2024 11:32 AM DRUM CARRIER 08/01/2024 11:32 AM DRUM CARRIER Shelby PATRICIO HEMATOLOGY Final R esult [facility] [address] [place] [address], [facility] [address] [place] [address] * (ABNORMAL) BASIC METABOLIC PANEL (08/01/2024 11:32 AM DRUM CARRIER) Pathologist [facility] GLUCOSE 84 65 - 99 mg/dL [facility] Comment: Fasting reference interval UREA NITROGEN (BUN) 14 7 - 25 mg/dL [facility] CREATININE 0.69 0.60 - 1.00 mg/dL [facility] EGFR 92 > OR = 60 mL/min/1. 73m2 [facility] BUN/CREATININE RATIO SEE NOTE: 6 - 22 (calc) [facility] Comment: Not Reported: BUN and Creatinine are within reference range. SODIUM 140 135 - 146 mmol/L [facility] POTASSIUM 4.0 3.5 - 5.3 mmol/L [facility] CHLORIDE 101 98 - 110 mmol/L [facility] CARBON DIOXIDE 33(H) 20 - 32 mmol/L [facility] ELECTROLYTE BALANCE 6(L) 7 - 17 mmol/L (calc) [facility] CALCIUM 9.4 8.6 - 10.4 mg/dL [facility] Blood BLOOD SPECIMEN / Unknown 08/01/2024 11:32 AM DRUM CARRIER 08/01/2024 11:32 AM DRUM CARRIER Shelby PATRICIO CHEMISTRY Final R esult [facility] [address] [place] [address], [facility] [address] [place] [address] * SCAN-OPERATIVE/PROCEDURE REPORT (07/30/2024 12:00 AM DRUM CARRIER) us Scanner OTHER Final Result * XR MAMMO TONG BILAT SCREEN (04/21/2024 3:36 PM CDT) Anatomical Region Laterality Modality BREASTS, Breast Left, Breast Right Bilateral Mammography Impressions 04/23/2024 2:18 PM CDT There is no radiographic evidence for malignancy. Recommend annual mammograms. MAMMOGRAM ASSESSMENT: ACR 1 Negative PATIENTS: You will also receive a letter with your examination results in an easy to read format. If you have questions about your results, please contact your referring provider. Narrative 04/23/2024 2:18 PM CDT For Patients: As a result of the Century Cures Act, medical imaging exams and procedure reports are released immediately into your electronic medical record. You may view this report before your referring provider. If you have questions, please contact your health care provider. XR MAMMO TONG BILAT SCREEN [[id number]] CLINICAL HISTORY: This is an asymptomatic 74 y.o. patient. INDICATION FOR EXAM: Mammogram Screening. TECHNIQUE: CC & MLO views were obtained. This study was evaluated with the assistance of Computer-Aided Detection. Breast Tomosynthesis was used in interpretation. COMPARISON FILM: Yes 04/17/23 [facility] 04/13/22 [facility] FINDINGS: There are scattered areas of fibroglandular density. There are no dominant masses, suspicious micro calcifications or areas of architectural distortion. Shelby PATRICIO MAMMO Final R esult * (ABNORMAL) LIPID PANEL W REFLEX MEASURED LDL (03/07/2023 3:14 PM CDT) CHOLESTEROL,TOTAL 243(H) 100 - 199 mg/dL 03/08/2023 5:48 AM CDT [facility] Comment: Cholesterol, Total Reference Ranges Desirable <200 mg/dL Borderline 200-239 mg/dL High >=240 mg/dL TRIGLYCERIDES 141 <150 mg/dL 03/08/2023 5:48 AM CDT [facility] HDL CHOLESTEROL 61 >40 mg/dL 5:48 AM CDT [facility] NON-HDL CHOLESTEROL 182(H) <145 mg/dl 03/08/2023 5:48 AM CDT [facility] CHOL/HDL RATIO 3.98 <4.50 03/08/2023 5:48 AM CDT [facility] LDL CHOLESTEROL 154(H) <=130 mg/dL 03/08/2023 5:48 AM CDT [facility] VLDL CHOLESTEROL 28 <=30 mg/dL 03/08/2023 5:48 AM CDT [facility] PROVIDER ORDERED STATUS RANDOM 03/08/2023 5:48 AM CDT [facility] Blood BLOOD SPECIMEN / Unknown Venipuncture / Unknown 03/07/2023 3:14 PM CDT 03/07/2023 3:15 PM CDT us Shelby PATRICIO CHEMISTRY Final R esult [facility] [address] [place] [id number], * COLONOSCOPY (10/17/2018 10:12 AM CDT) 10/17/2018 10:1 2 AM CDT Narrative Transcriptions Arturo Cervantes MD - 10/17/2018 11:43 AM CDT Patient Name: Jacqueline Weeks Procedure Date: 10/17/2018 Gender: Female Date of : 1950 Admit Type: Outpatient Procedure: Colonoscopy Proceduralist: Arturo Cervantes MD , Emmanuelle Caraballo RN(Nurse) Indications/Pre-Op Diagnosis: Screening for colorectal malignant neoplasm, Last colonoscopy: September 2005 Medications: Fentanyl 100 micrograms IV, Midazolam 4 mgIV, The level of sedation administered wasmoderate Procedure Description: The patient had risks, benefits and alternatives explained to andgave informed consent. The patient had a stable cardiopulmonary status and judged an adequate candidate for conscious sedation. The [id number] was passed through the anus and advanced [...] reponse to care. Please refer to the patien'ts medical record flowsheets and nursing notes for moderate sedation details. Total physician intraservice time was 16 minutes. Arturo Cervantes MD 10/17/2018 11:43:30 AM This report has been signed electronically. Note Initiated On: 10/17/2018 10:12 AM Procedure Code(s): --- Professional --- 89632, Colonoscopy, flexible; diagnostic, including collection of specimen(s) bybrushing or washing, when performed (separateprocedure) Diagnosis Code(s): --- Professional --- Z12.11, Encounter for screening formalignant neoplasm of colon CPT copyright 2017 [employer]. All rights reserved. The codes documented in this report are preliminary and upon machinist class b reviewmay be revised to meet current compliance requirements. Scope In: 11:26:29 AM Scope Withdrawal Time 0 hours 7 minutes 51 seconds Scope Out: 11:40:51 AM Arturo Cervantes MD PROCEDURE ORD Final Res ult * (ABNORMAL) XR DXA BONE DENSITY 2 SITES AXIAL [06207.1] (09/10/2018 11:18 AM CDT) Anatomical Region Laterality Modality Spine, HIPS, HIPL, HIPR Other Narrative 09/12/2018 10:04 AM CDT Please see scanned document for results of this study. Shelby PATRICIO DEXA Final R esult * ANTI HCV [[id number]] (02/10/2014 12:04 PM CDT) HEPATITIS C ANTIBODY Non-Reacti ve Non-Reacti ve 02/10/2014 4:44 PM CDT [facility] Blood specimen (specimen) BLOOD SPECIMEN / Unknown Venipuncture / Unknown 02/10/2014 12:04 PM CDT 02/10/2014 12:04 PM CDT Narrative [facility] - 02/10/2014 4:44 PM CDT Antibodies to HCV not detected; does not exclude the possibility of exposure to HCV. Emma Zuluaga SEND OUTS Final R esult [facility] [address] [place] [address], [place] from Last 3 Months or Most Recently Relevant to Health Maintenance Insurance [employer] PR[employer] MR PB ONLY MEDICA PRIME SOLUTION HB MEDICARE PART A HB ONLY MEDICARE PART B HB ONLY [employer] COMP Member Subscriber Plan / Payer (Ef fective 2016-Present) Name:Jcaqueline eWeks Relation to Subscriber:Employee Name:NICOLE Date of :1998 (Home) Address: [address] [place] [id number] Payer ID:Not on file Group ID:Not on file Type:Not on file [id number] Address: [address] [place] [address] Advance Directives Documents on File Type Date Recorded Patient Supervisor [employer] Expl anation Healthcare Directive 07/10/2018 11:28 AM H EALTHCARE DIRECTIVE, [facility], 07/05/18 Care Teams Dump Attendant Relationship Specialty Start Date End Date Shelby Leonardo PA [address] [place] [address] PCP - General Family Practice 07/10/16
[2024-08-11] MEDS: OXYCODONE (CR) 10 MG TAB.ER.12H PO (11:57)
[2024-08-11] MEDS: ACETAMINOPHEN 500 MG TABLET 1000 MG PO ×2 (11:57→17:54)
[2024-08-11] MEDS: LACTATED RINGERS 1000 ML 1,000 ML 100 ML IV (12:14)
[2024-08-11] MEDS: SODIUM CHLORIDE 0.9 % (FLUSH) 10 ML SYRINGE IVF (12:14)
--- NOTE | 2024-08-11 12:46 | SUR.PREOP ---
TIME?OUT:?1246 PT/RN/MDA?VERIFICATION?OF?SURGICAL?SITE,?PROCEDURE,?AND?CONSENT OBTAINED?PRIOR?TO?INVASIVE?PROCEDURE.
[2024-08-11] MEDS: MIDAZOLAM HCL 1 MG/ML inj IVP (12:49)
[2024-08-11] MEDS: fentaNYL 100 MCG/2 ML inj IVP (12:49)
--- NOTE | 2024-08-11 13:13 | W.PM.NB ---
Nerve Block Nerve Block Time Seen by Provider: 12:50 Date Seen: 08/11/24 Type of block requested by surgeon for post-operative analgesia: adductor canal Side: left Time out performed: Yes Verification of patient name: Yes Verification of date of : Yes Site marking: site marked Name of person performing procedure: Chidi Continuous monitoring Was continuous monitoring of O2 sat, B/P, punchboard filling machine operator, recorded every 15 minutes?: Yes Procedure Checklist: sterile prep, needles and gloves Ultrasound guided. Images saved: Yes Medications given in 5ml increments after negative aspiration: Marcaine %: 0.25 mL: 15 Needle gauge: 20 Precedex (mcg): 25 Patient tolerated procedure well: Yes Block Charges Block Charge (with Pro Fee): Femoral Nerve Use of Ultrasound Machine for Block: Yes- US Guidance/pain block
--- NOTE | 2024-08-11 13:13 | W.PM.NB ---
Nerve Block Nerve Block Time Seen by Provider: 12:50 Date Seen: 08/11/24 Type of block requested by surgeon for post-operative analgesia: geniculars Side: left Time out performed: Yes Verification of patient name: Yes Verification of date of : Yes Site marking: site marked Name of person performing procedure: Chidi Continuous monitoring Was continuous monitoring of O2 sat, B/P, monitoring analyst, recorded every 15 minutes?: Yes Procedure Checklist: sterile prep, needles and gloves Ultrasound guided. Images saved: Yes Medications given in 5ml increments after negative aspiration: Marcaine %: 0.25 mL: 9 Needle gauge: 25 Patient tolerated procedure well: Yes Block Charges Block Charge (with Pro Fee): Genicular Nerve Block
--- NOTE | 2024-08-11 13:14 | P.ANES_ITS ---
Anesthesia Charges Start Date/Time Anesthesia Start Date: 08/11/24 Anesthesia Start Time: 13:12 Stop Date/Time Anesthesia Stop Date: 08/11/24 Anesthesia Stop Time: 15:32 Summary Extremes of Age - Over 70 or under 1: MDA Coding CPT Codes CPT Codes: ANESTH KNEE ARTHROPLASTY - 16905 ([id number]) P2 - PATIENT W/MILD SYST DISEASE, QK - EXPERIMENTAL MECHANIC SPACECRAFT 2-4 CNCRNT ANES PROC, QX - AUTOMATIC I THREADING MACHINE FEEDER SVC W/ MD MED DIRECTION Additional Codes: Summary - Extremes of Age - Over 70 or under 1: MDA ([id number])
--- NOTE | 2024-08-11 13:14 | W.ANESCHARGE ---
Anesthesia Charges Start Date/Time Anesthesia Start Date: 08/11/24 Anesthesia Start Time: 13:12 Stop Date/Time Anesthesia Stop Date: 08/11/24 Anesthesia Stop Time: 15:32 Summary Extremes of Age - Over 70 or under 1: MDA Coding CPT Codes CPT Codes: ANESTH KNEE ARTHROPLASTY - 11292 ([id number]) P2 - PATIENT W/MILD SYST DISEASE, QK - CIRCULAR DISTRIBUTOR 2-4 CNCRNT ANES PROC, QX - CORK SORTER SVC W/ MD MED DIRECTION Additional Codes: Summary - Extremes of Age - Over 70 or under 1: MDA ([id number])
[2024-08-11] MEDS: CEFAZOLIN 2 GM in 0.9 % SODIUM CHLORIDE Mini-bag 100 ML IVPB ×2 (13:25→19:42)
--- NOTE | 2024-08-11 13:26 | W.PM.H&PU ---
History & Physical Update History & Physical Update H&P Reviewed and patient assessed: No changes noted
--- NOTE | 2024-08-11 13:27 | CRLHL7_ITS ---
For Patients: As a result of the Cures Act, medical imaging exams and procedure reports are released immediately into your electronic medical record. You may view this report before your referring provider. If you have questions, please contact your health care provider. Indication: Postop. Technique: Left knee 3 views. Comparison: X-ray knee February 2024 Findings/ Impression: Acute postoperative changes of left total knee arthroplasty. Prosthesis are well aligned and appropriately positioned. No periprosthetic fracture. Mild left knee soft tissue swelling and emphysema. Dictated by Lisy Garcia MD @ 08/12/2024 8:05:27 AM (Electronically Signed)
[2024-08-11] MEDS: TRANEXAMIC ACID 100 MG/ML INJ 1000 MG IV (13:30)
--- NOTE | 2024-08-11 14:59 | P.ORPRC_ITS ---
Procedure Note Date of procedure: 08/11/24 Procedure: PREOPERATIVE DIAGNOSIS: 1. Left knee osteoarthritis, primary, severe POSTOPERATIVE DIAGNOSIS: 1. Left knee osteoarthritis, primary, severe PROCEDURE: 1. Left total knee arthroplasty - subvastus SURGEON: Mateusz Coe MD. CREDIT COORDINATOR: KELSEY Stovall - Of note, a skilled assistant nurse manager was critical for this case to aid in patient positioning, tissue retraction, limb manipulation/positioning, and closure. ANESTHESIA: Spinal anesthetic EBL: 50ml IMPLANTS: DePuy J&J all cemented TKA - Attune PS femur size 7 Size 5 tibia 5 poly spacer 35 mm patella TOURNIQUET: 90 min at 300 torr COMPLICATIONS: None evident INDICATIONS: The patient is a pleasant 74-year-old female who has experienced severe left knee pain and difficulty bearing weight. Workup included x-rays which revealed severe osteoarthrosis in the knee. Given the deformity, the dysfunction, and the pain, as well as the failure of nonoperative management, recommendation was made for surgery. FINDINGS: Full-thickness chondral loss diffusely throughout all 3 compartments. Moderate effusion upon entering the joint. Large tricompartmental osteophytosis. DESCRIPTION OF PROCEDURE: Following a thorough discussion of risks, benefits, and alternatives consent was obtained and the left knee was marked. The patient was brought to the operating room and placed supine on the operating table. In duction of anesthesia was undertaken. 2 g IV Ancef and 1 g tranexamic acid was administered within 1 hr of incision preoperatively. Proper time-out was performed identifying proper patient, site, procedure. The operative extremity was prepped and draped in the appropriate sterile fashion using ChloraPrep after the patient was positioned supine with all bony prominences well padded. A longitudinal, anterior, midline skin incision was made starting approximately 3cm proximal to the superior pole of the patella and advanced distal to the tibial tubercle. A subvastus approach was utilized. A medial subperiosteal sleeve was created with knife, valedz elevator and curved osteotome. The retropatellar fatpad was resected and the synovium in the suprapatellar pouch excised to visualize the anterior femoral cortex. Femoral preparation was performed via an intramedullary guide. Step drill allowed access into the femoral canal. The distal cutting guide was placed with 6? of valgus and 10 mm cut on the distal femur. Femur was sized using a posterior referencing guide in 3? of external rotation. This found have a best fit with the sizing noted above. The 4 in 1 cutting block was then placed, and the distal femur shaped accordingly. The box cut was then created and the trial implant inserted to confirm appropriate fit. We turned our attention to the proximal tibia. Extramedullary guide was utilized for cutting with the goal of being 90 degree cut from the mechanical axis of the tibia in the varus/valgus plane utilizing tibial crest as the primary alignment. Initially a for mm resection was performed from the medial tibial plateau. An additional 2mm did require resection to achieve appropriate balance. Ultimately, balancing was achieved in both flexion and extension in both varus and valgus. The knee was able to achieve full extension as well comfortably. The patella was initially measured and found have a thickness of 24 mm. It was resected back to approximately 14 mm. It was sized to be a best fit with as noted above. This was drilled, trial placed. All trials were placed and found to have an excellent stability and balance. At this stage, trial implants were removed, the knee was thoroughly irrigated with normal saline, and the cement was mixed. After irrigation, the knee was thoroughly dried, and cement placed, with the real tibial and femoral implants placed along with the patella. Trial poly spacer was placed and confirmed to have excellent range of motion and full extension, and the real poly spacer opened and inserted. All extra cement was removed, and a 3 min Betadine soak performed. Finally, a final irrigation round with normal saline was performed. Closure performed with 0 PDS and #0 Stratafix for the quad tendon/retinaculum. 2-0 Vicryl/Stratafix for the subcutaneous and 4-0 Monocryl for subcuticular closure. Dressings were applied and the patient was awoken from anesthesia after the tourniquet deflated and transferred the PACU in stable condition. A skilled assistant nurse manager was critical for this case to aid in patient positioning, tissue retraction, bone exposure, limb manipulation/positioning, patient safety, and closure. PLAN: 1. Weight bear as tolerated operative extremity. 2. 23 hr perioperative antibiotics. 3. Ice. 4. PT/OT consults for ambulation assistance/mobility education. 5. Social work consult for discharge planning. 6. DVT prophylaxis with at SCDs and aspirin twice daily.
--- NOTE | 2024-08-11 15:32 | P.ANES_ITS ---
Anesthesia Charges Start Date/Time Anesthesia Start Date: 08/11/24 Anesthesia Start Time: 13:12 Stop Date/Time Anesthesia Stop Date: 08/11/24 Anesthesia Stop Time: 15:32 Coding CPT Codes CPT Codes: ANESTH KNEE ARTHROPLASTY - 91610 ([id number]) P2 - PATIENT W/MILD SYST DISEASE, QK - MANAGER FRONT 2-4 CNCRNT ANES PROC, QX - DIRECTOR GEOPHYSICAL LABORATORY SVC W/ MD MED DIRECTION
--- NOTE | 2024-08-11 15:32 | W.ANESCHARGE ---
Anesthesia Charges Start Date/Time Anesthesia Start Date: 08/11/24 Anesthesia Start Time: 13:12 Stop Date/Time Anesthesia Stop Date: 08/11/24 Anesthesia Stop Time: 15:32 Coding CPT Codes CPT Codes: ANESTH KNEE ARTHROPLASTY - 89109 ([id number]) P2 - PATIENT W/MILD SYST DISEASE, QK - LARD RENDERER 2-4 CNCRNT ANES PROC, QX - RELINER SVC W/ MD MED DIRECTION
--- NOTE | 2024-08-11 16:08 | SUR.PHASEI ---
patient met discharge criteria per anesthesia
[2024-08-11] MEDS: OXYCODONE 5 MG TABLET PO ×2 (17:55→20:30)
--- NOTE | 2024-08-11 19:17 | PC.NURSE ---
Patient up to floor at 1600. alert and oriented x4. Tolerating a reg. diet. denies N/V/SOB. PRN tylenol and oxy administered w/relief. Dressing to Left knee C/D/I. Patient up to chair for meals.
[2024-08-11] MEDS: ASPIRIN 81 MG TABLET EC PO (20:29)
[2024-08-11] MEDS: SENNOSIDES 1 TAB TABLET 2 TAB PO (20:30)
--- NOTE | 2024-08-11 23:14 | P.IMCN_ITS ---
Date of Consult Patient: Vicky Patient Consult date: 08/11/24 Requesting Physician: Orthopedics Primary Care Provider: Shelby Leonardo PA-C Consult Narrative Reason for consult: Postop care of HTN, anxiety, depression, hyperlipidemia Narrative: Jacqueline Weeks is a 74 year old woman presents for elective left total knee arthroplasty due to severe, symptomatic osteoarthritis. Procedure is undertaken successfully without any apparent complications. Estimated blood loss 50 mL. Pain is adequately managed at this time. Review of Systems Status of ROS: Reports: 6 or more systems reviewed and unremarkable except as noted in History and below [facility] Medical History (Updated 08/11/24 @ 23:19 by Iggy Chaney MD) Patellar clunk syndrome of right knee ?M25.861 - Other specified joint disorders, right knee (ICD-10) Lumbar degenerative disc disease ?M51.369 - Other intervertebral disc degeneration, lumbar region without mention of lumbar back pain or lower extremity pain (ICD-10) Bradycardia ?R00.1 - Bradycardia, unspecified (ICD-10) Obesity ?E66.9 - Obesity, unspecified (ICD-10) Postoperative nausea and vomiting ?R11.2 - Nausea with vomiting, unspecified (ICD-10) ?Z98.890 - Other specified postprocedural states (ICD-10) OCD (obsessive compulsive disorder) ?F42.9 - Obsessive-compulsive disorder, unspecified (ICD-10) Anxiety ?F41.9 - Anxiety disorder, unspecified (ICD-10) Dysthymia ?F34.1 - Dysthymic disorder (ICD-10) Inclusion cyst of vulva ?N90.7 - Vulvar cyst (ICD-10) Arthritis of left knee ?M17.12 - Unilateral primary osteoarthritis, left knee (ICD-10) Arthritis of right knee ?M17.11 - Unilateral primary osteoarthritis, right knee (ICD-10) Skin lesion of face ?L98.9 - Disorder of the skin and subcutaneous tissue, unspecified (ICD-10) Depression ?F32.A - Depression, unspecified (ICD-10) Back pain ?M54.9 - Dorsalgia, unspecified (ICD-10) Asymmetrical hearing loss ?H91.8X3 - Other specified hearing loss, bilateral (ICD-10) Hypertension ?I10 - Essential (primary) hypertension (ICD-10) Surgical History (Updated 08/11/24 @ 23:19 by Iggy Chaney MD) History of total left knee replacement (08/11/24) ?Z96.652 - Presence of left artificial knee joint (ICD-10) History of arthroplasty of right knee (05/05/24) ?Z96.651 - Presence of right artificial knee joint (ICD-10) History of hysterectomy (1988) ?Z90.710 - Acquired absence of both cervix and uterus (ICD-10) Family History Sister Pulmonary embolism Father Pulmonary embolism Social History Narrative: She lives with her in a home in [facility]. They have a split-level home with 8 steps to get to the main level where she can live. She does not smoke. She does not drink alcohol. What is your current living situation?: I presently have a place to live Problems where you live: no known problems In the past 12 months, utilities in danger of being shut off: no In past 12 months, lack of transportation kept you from medical appts, meetings, work, or getting things needed for daily living: no In the past 12 mos, have been you worried that your food would run out before you had money to buy more?: never true In the past 12 mos, the food you bought just didn't last and you didn't have money to buy more?: never true Highest level of school completed/degree received: Bachelor's degree Smoking Status: Never smoker Do you use any of these nicotine containing products: None Second hand tobacco smoke exposure: No How often do you have a drink containing alcohol: monthly or less Alcohol type: wine How many standard drinks containing alcohol do you have on a typical day: 1 or 2 How often do you have six or more drinks on one occasion: Never AUDIT-C Alcohol total score: 1 Non-prescribed substance use: denies use Caffeine: Yes How often does anyone, including family, friends and others, physically hurt you : never How often does anyone, including family, friends and others, insult or talk down to you: never How often does anyone, including family, friends and others, threaten you with harm: never How often does anyone, including family, friends and others, scream or curse at you: never service: No Meds Home Medications and Allergies Home Medications ?Medication ?Instructions ?Recorded ?Confirmed ?Type citalopram 40 mg tablet 40 mg PO DAILY 03/10/22 08/11/24 History hydrochlorothiazide 25 mg tablet 25 mg PO DAILY 03/10/22 08/11/24 History losartan 25 mg tablet 25 mg PO DAILY 03/10/22 08/11/24 History calcium carbonate (Calcium 600) 600 mg PO QDAY 03/18/24 08/11/24 History fluticasone propionate 50 1 spray intranasal Q12H 03/18/24 08/11/24 History mcg/actuation nasal spray,suspension multivitamin 1 tab PO QDAY 03/18/24 08/11/24 History mv-mn-folic 200 mcg-vit K 15 1 cap PO DAILY 03/18/24 08/11/24 History mcg-lutein 5 mg-zeaxanthin 1 mg capsule (PreserVision AREDS 2 Plus Multivit) rosuvastatin 10 mg tablet 10 mg PO HS 03/18/24 08/11/24 History lutein 20 mg capsule 20 mg PO DAILY 05/05/24 08/11/24 History propylene glycol 0.6 % eye drops 1 drp ophthalmic (eye) DAILY PRN 05/05/24 07/25/24 History (Lubricant Eye (propylene glycol)) aspirin 81 mg tablet,delayed 81 mg PO QDAY 06/27/24 08/11/24 History release Allergies Allergy/AdvReac Type Severity Reaction Status Date / Time doxycycline Allergy Severe Chest Pain Verified 08/05/24 10:10 erythromycin base Allergy Severe Verified 08/05/24 10:10 Exam Narrative: Exam Narrative: Examine her in her hospital room. Appears comfortable and in no acute distress. Alert and oriented x4. Friendly, articulate, cooperative. Neck is supple. No JVD or hepatojugular reflux. Lungs are clear to auscultation without wheezing, rhonchi, or rales. Chest wall excursions are full. Heart tones with regular rhythm, normal S1-S2, without murmur, gallop, rub. Abdomen with active bowel sounds, soft, nontender. Moves all 4 extremities. Const: Vital Signs, click to edit/add: Vital Signs - 24 hr 08/11/24 12:31 08/11/24 12:45 08/11/24 12:50 Temperature 97.8 F Pulse Rate 51 L 54 L 50 L Respiratory Rate 16 14 14 Blood Pressure 163/82 H 156/87 H 143/70 H Pulse Oximetry 97 100 99 Oxygen Delivery Me thod Room Air Nasal Cannula Nasal Cannula Oxygen Flow Rate 3 3 08/11/24 15:28 08/11/24 15:30 08/11/24 15:35 Temperature 97.1 F L 97.1 F L 97.1 F L Pulse Rate 58 L 57 L 53 L Respiratory Rate 17 12 12 Blood Pressure 111/69 116/71 132/70 Pulse Oximetry 91 91 92 Oxygen Delivery Me thod Room Air Room Air Room Air Oxygen Flow Rate 08/11/24 15:40 08/11/24 15:45 08/11/24 15:50 Temperature 97.1 F L 97.1 F L 97.1 F L Pulse Rate 54 L 54 L 54 L Respiratory Rate 11 L 14 26 H Blood Pressure 130/67 144/73 H 147/76 H Pulse Oximetry 92 93 93 Oxygen Delivery Me thod Room Air Room Air Room Air Oxygen Flow Rate 08/11/24 15:55 08/11/24 16:00 08/11/24 16:00 Temperature 98.1 F 96.1 F L 96.1 F L Pulse Rate 53 L 54 L 54 L Respiratory Rate 15 16 16 Blood Pressure 135/76 141/77 H 141/77 H Pulse Oximetry 93 90 90 Oxygen Delivery Me thod Room Air Room Air Room Air Oxygen Flow Rate 08/11/24 16:15 08/11/24 16:30 08/11/24 16:45 Temperature 96.3 F L 96.3 F L 96.6 F L Pulse Rate 53 L 50 L 51 L Respiratory Rate 16 16 16 Blood Pressure 139/78 143/69 H 144/78 H Pulse Oximetry 90 93 95 Oxygen Delivery Me thod Room Air Room Air Room Air Oxygen Flow Rate 08/11/24 17:00 08/11/24 17:30 08/11/24 18:00 Temperature 96.6 F L 96.8 F L 97.6 F Pulse Rate 53 L 53 L 66 Respiratory Rate 16 18 18 Blood Pressure 143/88 H 125/66 121/75 Pulse Oximetry 90 95 96 Oxygen Delivery Me thod Room Air Room Air Room Air Oxygen Flow Rate 08/11/24 19:00 08/11/24 20:00 08/11/24 21:00 Temperature 97.6 F 97.8 F 97.9 F Pulse Rate 57 L 54 L 55 L Respiratory Rate 18 16 18 Blood Pressure 143/80 H 114/60 113/69 Pulse Oximetry 98 94 91 Oxygen Delivery Me thod Room Air Room Air Room Air Oxygen Flow Rate 08/11/24 22:00 Temperature 97.6 F Pulse Rate 53 L Respiratory Rate 18 Blood Pressure 112/59 L Pulse Oximetry 92 Oxygen Delivery Me thod Room Air Oxygen Flow Rate Assessment and Plan Assessment and plan (1) Arthritis of left knee: Status: Acute (2) Status post left knee replacement: Status: Acute (3) Hypertension: Problem comment: Resume blood pressure medications as tolerated. Status: Acute (4) Anxiety: Problem comment: -continue with citalopram -single dose of lorazepam 1 mg at at bedtime tonight Status: Acute Plan 1. Reviewed impression recommendations with patient 2. Answered her questions to her satisfaction 3. Continue with supportive efforts 4. Agree with perioperative antibiotic prophylaxis 5. Agree with postoperative venous thromboembolism prophylaxis 6. Completed the hospitalist portion of the discharge for this patient Total Time Spent Total Time Spent: 45 minutes
[2024-08-12] MEDS: OXYCODONE 5 MG TABLET PO ×4 (00:04→08:24)
[2024-08-12] MEDS: ACETAMINOPHEN 500 MG TABLET 1000 MG PO ×2 (00:05→05:59)
[2024-08-12] MEDS: LORazepam 1 MG TABLET PO (00:06)
[2024-08-12] MEDS: CEFAZOLIN 2 GM in 0.9 % SODIUM CHLORIDE Mini-bag 100 ML IVPB (04:01)
[2024-08-12 04:05] VITALS: BP 116/67; PULSE 60; RESP 16; TEMP 36.6; O2SAT 92
--- NOTE | 2024-08-12 05:15 | PC.NURSE ---
Addendum entered by Sanjuanita Barth 08/12/24 06:11: Pt heart rate 50-60 bpm throughout shift, pt reports her last surgery on her right knee she had sinus bradycardia as well, pt denies chest pain, SOB, nausea and light headiness. Also correction to original note pt denies passing gas yet. Bowel sounds are active. Original Note: Pt alert and oriented x3. Pt reports 1-4/10 pain in left knee, managed with cold pack to site, scheduled and PRN medications. Pt up SBA with walker and gait belt, voiding, and tolerating a regular diet and passing gas. When pt fell asleep O2 stats 86-88%, pt place on 0.5 L O2 to maintain stats of 90%. When pt is awake pt O2 stats 92-100%. ?
[2024-08-12] MEDS: OMEPRAZOLE 20 MG CAPSULE DR 40 MG PO (05:59)
[2024-08-12 06:57] LABS: Basophils Percent Auto 0.2 % (0.0-3.0); Hematocrit 33.8 % (33.0-51.0); Hemoglobin* 10.5 gm/dL (12.0-16.0); Immature Granulocytes Pct Auto 0.2 %; Lymphocytes Percent Auto 9.1 % (20-44); Mean Corpuscular HGB Conc 31 gm/dL (32-36); Mean Corpuscular Hemoglobin 29 pg (26-34); Mean Corpuscular Volume 93 fL (80-100); Monocytes Percent Auto 8.9 % (0.0-11.0); Neutrophils Percent Auto 81.6 % (42.0-72.0); Platelet Count* 347 K/uL (140-440); RDW Coefficient of Variation % 13.3 % (11.5-15.5); Red Blood Count 3.64 m/uL (4.00-5.20)
[2024-08-12 06:58] LABS: Slide Review Reflex No
[2024-08-12 07:00] VITALS: BP 164/84; PULSE 55; RESP 16; TEMP 36.6; O2SAT 96
[2024-08-12 07:15] LABS: Potassium* 4.6 mmol/L (3.6-5.1); Sodium* 135 mmol/L (135-149)
[2024-08-12 07:18] LABS: Blood Urea Nitrogen* 16 mg/dL (7-30); Creatinine* 0.6 mg/dL (0.5-1.5); Estimated Glomerular Filt Rate 95 ml/min
[2024-08-12] MEDS: CITALOPRAM HYDROBROMIDE 20 MG TABLET 40 MG PO (08:30)
[2024-08-12] MEDS: ASPIRIN 81 MG TABLET EC PO (08:30)
[2024-08-12] MEDS: SENNOSIDES 1 TAB TABLET 2 TAB PO (08:30)
[2024-08-12] MEDS: hydroCHLOROthiazide 25 MG TABLET PO (08:30)
[2024-08-12] MEDS: LOSARTAN POTASSIUM 50 MG TABLET 25 MG PO (08:30)
--- NOTE | 2024-08-12 09:21 | PM.ORPN ---
Subjective Subjective Date Seen: 08/12/24 Principal diagnosis: Status postop day 1 left total knee arthroplasty Interval history: Patient reports doing okay. No acute events overnight. Difficult night of sleep. Pain managed with scheduled and PRN medications, ice. DVT prophylaxis: 81 mg aspirin by mouth twice daily, SCDs, walking. Denies fevers, chills, aches, N/V, CP, SOB/LINARES, or lightheadedness. Oxygen given overnight via nasal cannula due to low oxygen saturation, which seems to have improved. Per nurse, patient is often found with a pillow underneath her knee, or lying on her side with her knees tucked. Ortho Exam Narrative Exam Narrative: -Patient appears comfortable; no apparent acute distress -Alert and oriented times 3 -Operative knee moderately swollen; soft tissues supple; no ecchymosis; no erythematous streaking Warmth appropriate -Surgical dressing clean, dry, intact; no drainage -Bilateral calfs soft; no significant swelling, edema, tenderness, erythema, discoloration, warmth, or palpable cords -2+ DP/PT pulses, intact dermatomes and myotomes distally (5/5 strength) Const Vital Signs, click to edit/add: Vital Signs - 24 hr 08/11/24 12:31 08/11/24 12:45 08/11/24 12:50 Temperature 97.8 F Pulse Rate 51 L 54 L 50 L Pulse Rate [Right Pulse Oximeter] Respiratory Rate 16 14 14 Blood Pressure 163/82 H 156/87 H 143/70 H Blood Pressure [Left Arm] Pulse Oximetry 97 100 99 Oxygen Delivery Method Room Air Nasal Cannula Nasal Cannula Oxygen Flow Rate 3 3 08/11/24 15:28 08/11/24 15:30 08/11/24 15:35 Temperature 97.1 F L 97.1 F L 97.1 F L Pulse Rate 58 L 57 L 53 L Pulse Rate [Right Pulse Oximeter] Respiratory Rate 17 12 12 Blood Pressure 111/69 116/71 132/70 Blood Pressure [Left Arm] Pulse Oximetry 91 91 92 Oxygen Delivery Method Room Air Room Air Room Air Oxygen Flow Rate 08/11/24 15:40 08/11/24 15:45 08/11/24 15:50 Temperature 97.1 F L 97.1 F L 97.1 F L Pulse Rate 54 L 54 L 54 L Pulse Rate [Right Pulse Oximeter] Respiratory Rate 11 L 14 26 H Blood Pressure 130/67 144/73 H 147/76 H Blood Pressure [Left Arm] Pulse Oximetry 92 93 93 Oxygen Delivery Method Room Air Room Air Room Air Oxygen Flow Rate 08/11/24 15:55 08/11/24 16:00 08/11/24 16:00 Temperature 98.1 F 96.1 F L 96.1 F L Pulse Rate 53 L 54 L 54 L Pulse Rate [Right Pulse Oximeter] Respiratory Rate 15 16 16 Blood Pressure 135/76 141/77 H 141/77 H Blood Pressure [Left Arm] Pulse Oximetry 93 90 90 Oxygen Delivery Method Room Air Room Air Room Air Oxygen Flow Rate 08/11/24 16:15 08/11/24 16:30 08/11/24 16:45 Temperature 96.3 F L 96.3 F L 96.6 F L Pulse Rate 53 L 50 L 51 L Pulse Rate [Right Pulse Oximeter] Respiratory Rate 16 16 16 Blood Pressure 139/78 143/69 H 144/78 H Blood Pressure [Left Arm] Pulse Oximetry 90 93 95 Oxygen Delivery Method Room Air Room Air Room Air Oxygen Flow Rate 08/11/24 17:00 08/11/24 17:30 08/11/24 18:00 Temperature 96.6 F L 96.8 F L 97.6 F Pulse Rate 53 L 53 L 66 Pulse Rate [Right Pulse Oximeter] Respiratory Rate 16 18 18 Blood Pressure 143/88 H 125/66 121/75 Blood Pressure [Left Arm] Pulse Oximetry 90 95 96 Oxygen Delivery Method Room Air Room Air Room Air Oxygen Flow Rate 08/11/24 19:00 08/11/24 20:00 08/11/24 21:00 Temperature 97.6 F 97.8 F 97.9 F Pulse Rate 57 L 54 L 55 L Pulse Rate [Right Pulse Oximeter] Respiratory Rate 18 16 18 Blood Pressure 143/80 H 114/60 113/69 Blood Pressure [Left Arm] Pulse Oximetry 98 94 91 Oxygen Delivery Method Room Air Room Air Room Air Oxygen Flow Rate 08/11/24 22:00 08/11/24 23:05 08/11/24 23:05 Temperature 97.6 F Pulse Rate 53 L Pulse Rate [Right Pulse Oximeter] Respiratory Rate 18 16 Blood Pressure 112/59 L Blood Pressure [Left Arm] Pulse Oximetry 92 96 96 Oxygen Delivery Method Room Air Room Air Oxygen Flow Rate 08/11/24 23:05 08/12/24 04:05 08/12/24 07:00 Temperature 97.8 F Pulse Rate Pulse Rate [Right Pulse Oximeter] 54 L 60 Respiratory Rate 16 Blood Pressure Blood Pressure [Left Arm] 116/67 Pulse Oximetry 92 96 Oxygen Delivery Method Nasal Cannula Oxygen Flow Rate 0.5 08/12/24 07:00 08/12/24 07:00 08/12/24 07:00 Temperature 97.8 F Pulse Rate Pulse Rate [Right Pulse Oximeter] 55 L 55 L Respiratory Rate 16 16 16 Blood Pressure Blood Pressure [Left Arm] 164/84 H Pulse Oximetry 96 96 Oxygen Delivery Method Room Air Room Air Oxygen Flow Rate Assessment and Plan Assessment and plan (1) Arthritis of left knee: Status: Acute (2) Status post left knee replacement: Problem details: Date of surgery 08/11/2024, Dr. Coe Status: Acute (3) Hypertension: Problem details: Resume blood pressure medications as tolerated. Status: Acute (4) Anxiety: Problem details: -continue with citalopram -single dose of lorazepam 1 mg at at bedtime tonight Status: Acute Plan - Complete 23 hour perioperative antibiotics. - PT/OT consult for education and assistance. - Social work consult for discharge planning - Prescribed analgesics as needed - DVT prophylaxis: 81 mg aspirin by mouth twice daily, walking, and SCDs - Anticipation is for discharge to home with today 08/12/2024 if the patient remains medically stable, pain is controlled, and they are safe with mobilization.
--- NOTE | 2024-08-12 10:45 | PC.NURSE ---
Discharge: patient alert and oriented. Ambulating hallways and BR with SBA and walker. Pain controlled w/PRN oxy. premedicated prior to therapies w/relief. Patient's VSS, RA, tolerating a reg. diet. denies N/V/Sob. Patient's dressing to L knee, C/D/I. Active ice to op site. Patient discharged to home at 1015 accompanied by spouse. IV removed tip intact. Discharge instructions given and signed, patient verbalized understanding. Belongings sheet signed.
== END 2024-08-12 10:15 | disposition home or self-care (01) ==
LOC: OR 11:04 → MEDSURG 11:06
PROVIDERS: PCP Physician Assistant Medical; Visit Provider Orthopaedic Surgery Sports Medicine
PROC: (CPT 27447; principal; 2024-08-11 12:45)
DX: M17.12 Unilateral primary osteoarthritis, left knee (principal); G89.18 Other acute postprocedural pain; I10 Essential (primary) hypertension; E66.9 Obesity, unspecified; F41.9 Anxiety disorder, unspecified; F32.A Depression, unspecified; F42.9 Obsessive-compulsive disorder, unspecified; F34.1 Dysthymic disorder; Z79.82 Long term (current) use of aspirin; Z68.33 Body mass index [BMI] 33.0-33.9, adult; E78.5 Hyperlipidemia, unspecified
CPT/HCPCS: 27447; 01402; 36415; 64447; 64454; 73560; 76942; 82565; 84132; 84295; 84520; 85025; 97110; 97116; 97162; 97165; 97535; 99100; A9270; C1776; J0665; J0690; J1100; J2250; J2405; J2704; J3010; J7120

== ENCOUNTER 2024-12-17 07:33 | Day surgery (SDC) | payer MEDICARE, OTHER, SELFPAY ==
[2024-12-17] VITALS (16 sets, daily range): BP systolic 81–163; BP diastolic 46–88; PULSE 48–60; RESP 10–16; TEMP 36.1–36.9; O2SAT 93–98; BMI 32.0
--- NOTE | 2024-12-17 07:46 | W.PM.H&PU ---
History & Physical Update History & Physical Update H&P Reviewed and patient assessed: No changes noted
[2024-12-17] MEDS: LACTATED RINGERS 1000 ML 1,000 ML 100 ML IV (08:19)
[2024-12-17] MEDS: SODIUM CHLORIDE 0.9 % (FLUSH) 10 ML SYRINGE IVF (08:19)
--- NOTE | 2024-12-17 08:35 | P.ANES_ITS ---
Anesthesia Charges Start Date/Time Anesthesia Start Date: 12/17/24 Anesthesia Start Time: 10:01 Stop Date/Time Anesthesia Stop Date: 12/17/24 Anesthesia Stop Time: 11:06 Summary Extremes of Age - Over 70 or under 1: MDA Coding CPT Codes CPT Codes: ANESTH KNEE JOINT SURGERY - 43544 ([id number]) P2 - PATIENT W/MILD SYST DISEASE, QK - EARLY CHILDHOOD EDUCATION INSTRUCTOR 2-4 CNCRNT ANES PROC, QX - CERTIFIED PERSONAL CHEF SVC W/ MD MED DIRECTION Additional Codes: Summary - Extremes of Age - Over 70 or under 1: MDA ([id number])
--- NOTE | 2024-12-17 08:35 | W.ANESCHARGE ---
Anesthesia Charges Start Date/Time Anesthesia Start Date: 12/17/24 Anesthesia Start Time: 10:01 Stop Date/Time Anesthesia Stop Date: 12/17/24 Anesthesia Stop Time: 11:06 Summary Extremes of Age - Over 70 or under 1: MDA Coding CPT Codes CPT Codes: ANESTH KNEE JOINT SURGERY - 56307 ([id number]) P2 - PATIENT W/MILD SYST DISEASE, QK - FUR REMODELER 2-4 CNCRNT ANES PROC, QX - BIOFUELS PRODUCT MANAGER SVC W/ MD MED DIRECTION Additional Codes: Summary - Extremes of Age - Over 70 or under 1: MDA ([id number])
--- NOTE | 2024-12-17 09:51 | SUR.PREOP ---
Pt being monitored in PACU before surgery. Pt had sedation by ARMHOLE BASTER JUMPBASTING and then moved out of OR due to other emergency. Will move back to OR when able.
[2024-12-17] MEDS: CEFAZOLIN 1 GM inj IVP (10:10)
[2024-12-17] MEDS: ROPIVACAINE 0.5% 30 ML 150 MG INJECTION (10:53)
--- NOTE | 2024-12-17 11:03 | P.ORPRC_ITS ---
Procedure Note Date of procedure: 12/17/24 Procedure: PREOPERATIVE DIAGNOSIS: 1. Right knee patellar clunk following prior TKA POSTOPERATIVE DIAGNOSIS: 1. Right knee patellar clunk following prior TKA PROCEDURE: 1. Right knee arthroscopic extensive excisional debridement including debridement of superior pole patella patellar clunk scar, medial and lateral gutter scar tissue, anterior fat pad scar tissue, etc. SURGEON: Mateusz Coe M.D. MOBILE WEB APPLICATION DEVELOPER: Dorothy Perry PA-C. Of note, an cancer genetics assistant was critical for this case to aid in patient positioning, knee manipulation, instrument exchange, and closure. 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 While their pain from the preoperative arthritic state has improved, they are now battled some patellar clunk phenomenon in the postoperative time. Initially this was simply an audible noise/palpable feeling, but is become more of a symptomatic process. As such, knee arthroscopy for debridement was recommended. FINDINGS: TKA implants all stable. No evidence of significant scratching or pathology. Regarding the scar, there was abundant scar in the suprapatellar pouch especially at the superior pole patella consistent with patellar clunk. There is also significant scar bands across the medial and lateral gutters especially near the tibial tray overlying the polyethylene component on the edges. There was a bony fragment along the lateral joint line which was also debrided from the lateral synovial tissue. All this was excisionally debrided with a torpedo shaver. DESCRIPTION OF PROCEDURE: After a thorough discussion of risks, benefits, and alternatives, the patient was brought to the operating room and placed upon the operating table. Induction of anesthesia was undertaken as previously noted. 2g iv Ancef was administered within 1 hr of incision preoperatively. Appropriate time-out was performed identifying proper patient, site, and procedure. The right lower extremity was prepped and draped in the appropriate sterile fashion using ChloraPrep. The limb was exsanguinated and tourniquet inflated. Anterolateral and anteromedial portals were established with an 11 blade, and a diagnostic arthroscopy was performed. This identified the findings as noted above. Following the diagnostic arthroscopy, an extensive excisional debridement was performed with a Excalibur shaver. Also, a 50 degree [place] cautery device was utilized for scar tissue debridement as well as a pituitary rongeur to help remove trapped tissue between femur and polyethylene component. Following the debridement, the knee was placed through range of motion found have no significant crepitation. At this stage, the shaver was reinserted into the suprapatellar pouch and all remaining debris was evacuated. Instruments were removed, excess fluid was drained, and closure performed with 3-0 Nylon. Dressings were applied, the tourniquet deflated, and the patient was awoken from anesthesia and transferred to the PACU in stable condition. PLAN: 1. Weightbear as tolerated operative extremity. Crutch / walker ambulation assistance PRN. 2. Ice, acetominophen and/or ibuprofen, and oxycodone for pain as needed. 3. Knee range of motion and quad sets/straight leg raise regularly 4. Follow up with PA visit in 1-2 weeks for a wound check and possibly to initiate physical therapy.
--- NOTE | 2024-12-17 11:09 | P.ANES_ITS ---
Anesthesia Charges Start Date/Time Anesthesia Start Date: 12/17/24 Anesthesia Start Time: 10:01 Stop Date/Time Anesthesia Stop Date: 12/17/24 Anesthesia Stop Time: 11:06 Coding CPT Codes CPT Codes: ANESTH KNEE JOINT SURGERY - 14761 ([id number]) P2 - PATIENT W/MILD SYST DISEASE, QK - OPERATIONS LABEL CLERK 2-4 CNCRNT ANES PROC, QX - JEWEL WAXER SVC W/ MD MED DIRECTION
--- NOTE | 2024-12-17 11:09 | W.ANESCHARGE ---
Anesthesia Charges Start Date/Time Anesthesia Start Date: 12/17/24 Anesthesia Start Time: 10:01 Stop Date/Time Anesthesia Stop Date: 12/17/24 Anesthesia Stop Time: 11:06 Coding CPT Codes CPT Codes: ANESTH KNEE JOINT SURGERY - 52277 ([id number]) P2 - PATIENT W/MILD SYST DISEASE, QK - STRIKE WARFARE/MISSILE SYSTEMS OFFICER 2-4 CNCRNT ANES PROC, QX - OPHTHALMIC MEDICAL TECHNOLOGIST SVC W/ MD MED DIRECTION
--- NOTE | 2024-12-17 12:58 | SUR.PHASEII ---
Instructed patient if no voiding in 8 hours from spinal anesthesia to come to ER for a catheter.
== END 2024-12-17 12:48 | disposition home or self-care (01) ==
LOC: OR 07:34
PROVIDERS: PCP Physician Assistant Medical; Visit Provider Orthopaedic Surgery Sports Medicine
PROC: (CPT 29870; principal; 2024-12-17 09:30)
DX: M25.861 Other specified joint disorders, right knee (principal); Z96.651 Presence of right artificial knee joint
CPT/HCPCS: 29877; 01400; 99100; J0690; J1100; J2250; J2405; J2704; J2795; J3010; J7120